=== PATIENT | female | born 1945 | race Caucasian/White ===

== ENCOUNTER 2017-01-14 11:26 | Inpatient (IN) ==
--- NOTE | 2017-01-14 11:32 | Pulmonology History & Physical ---
History of Present Illness Chief complaint: bilateral pneumonia, hypoxemia, hypotension, shortness of breath, cough History of present illness: ELY Ferrera acting as scribe for Dr. Ki Wesley. Ms. Pryor is a 71 year old /White female who was admitted today from our clinic for pneumonia, shortness of breath, productive cough, fever, hypoxemia, and hypotension. Her symptoms started yesterday with severe cough, body aches chills, fever, and shortness of breath. States she had to sleep up in her recliner and up on her couch last night due to inability to breathe. She had a low grade fever at home last night around 99-100 and admits fever around 100 this AM she took tylenol and her temp in the clinic was 98.4 oral temp. She is acute and chronically ill appearing. She is a current smoker and smokes 2 packs per day. Her blood pressure is normally around 130s-140s systolic and today it is 102/52. O2 sat on room air today in office 93% normally she is around 98% on room air. CXR done in the clinic reveals and acute RML infiltrate and an acute lingular infiltrate present. Due to the severity of her symptoms with bilateral infiltrates, low room air oxygen saturation, low blood pressure, fever, and her past medical history decision was made to admit to inpatient for further evaluation and treatment. She denies cardiac angina and palpitations, no syncope or near syncope, no symptoms of TIAs, denies reflux or solid dysphagia, denies any change in bowel habits. She denies any bleeding from any site. The remainder of the ROS is noncontributory. ALLERGIES: PENICILLINS, CODEINE, LIDODERM (per our clinic records) Home Medications: See list. Past Medical History: Migraine headaches, high blood pressure, type II diabetes mellitus, hyperlipidemia, history of depression, degenerative disease of the lumbar spine, spina bifida, history of colon polyps, last colonoscopy was in [address] Pina. Previous hospitalizations for pneumonia while she was under the care of Dr. Frye from pulmonary standpoint but we do not have these records at this time. She is followed by Dr. Han from an opthamology standpoint, Dr. Wallace from [facility] standpoint and Dr. Olivarez for her mammograms. Past Surgical History: Hip replacement surgery. Family History: Positive for high blood pressure and diabetes. 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 She smokes 2 packs of cigarettes per day and has smoked for 50 years. She is . She is the grandmother of Valentine Kenny RN who works at [employer] [employer] [facility] [place]. CXR done at [facility] 01/14/17 showed an acute RML and acute lingular infiltrate along with chronic changes. Labs done at [facility] 01/14/17 have been reviewed WBC 15,100 with 95% segs, RBC 5,540 H&H 16.6/50 with normal indices and a normal RDW 163,000 platelets. Glucose 189 BUN/Creatinine 18/1.00 Calcium 9.0 Sodium 136 Potassium 4.4 Magnesium 1.9. Home Medications Medication Instructions Recorded Confirmed Type Desvenlafaxine [Pristiq] 50 mg PO PC SUPPER 05/12/15 01/14/17 History Divalproex [Depakote] 250 mg PO BID 05/12/15 01/14/17 History Glimepiride 6 mg PO PC SUPPER 05/12/15 01/14/17 History Rosuvastatin [Crestor] 10 mg PO PC SUPPER 05/12/15 01/14/17 History cloNIDine HCl [Clonidine HCl] 0.2 mg PO PC SUPPER 05/12/15 01/14/17 History Allopurinol 100 mg PO PC SUPPER 10/26/15 01/14/17 History Carvedilol 6.25 mg PO BID 01/14/17 01/14/17 History Allergies Allergy/AdvReac Type Severity Reaction Status Date / Time Penicillins Allergy Severe Swelling Verified 11/08/15 09:53 of Lip/Tongue/Throat codeine AdvReac Intermediate NAUSEA/VOMI Verified 11/08/15 09:53 TING Medical,Surgical,& Family Hx - Medical History Cardio: History of: Hypertension Psychological: History of: Depression Neurology: History of: Migraine No history of: Seizures HEENT: History of: Eye Problem (GLASSES, BLIND IN LEFT EYE), Dental Problems ( UPPER AND LOWER PARTIALS) Endocrine: History of: Diabetes Mellitus (NIDDM), Dyslipidemia Rheumatology: History of;: Rheumatoid Arthritis Respiratory: History of: Bronchitis, Pneumonia, Respiratory Problems (scar tissue in lungs) Gastrointestinal: History of: GI Problems (DIARRHEA) Musculoskeletal: History of: Back/Neck Problems (SPUR IN BACK, SPINAL STENOSIS) - Surgical History HEENT Surgeries: Surgical HX of: Eye Surgery (RIGHT EYE CATARACT) Abdominal Surgeries: Surgical HX of: Abdominal Surgery, Appendectomy, Cholecystectomy, Colonoscopy Reproductive Surgeries: Surgical HX of;: Dilation and Curettage, Gynecologic Surgery, Hysterectomy Orthopedic Surgeries: Surgical HX of;: Total Hip Replacement (LEFT HIP REPLACEMENT) - Family History Family History: Reports;: Family Hypertension (MOTHER) - Social History Smoking Status: Never smoker Exam (Pulmonay) H&P - Constitutional Vitals: 59in 156.7lbs BP 104/79 HR 104 RR 22 Temp 97.4 O2 96% on 2L/min per nasal cannula Exam: Psych: Oriented x 3; acute and chronically ill appearing. HEENT: Pupils, irises, sclera, conjunctiva, and eyelids are normal. The face is symmetrical without rash or masses. Lips, tongue, buccal mucosa, soft and hard palates, and pharynx are WNL Neck: Symmetrical. Thyroid was not palpated. Lymphatics: No submandibular, cervical, or supraclavicular adenopathy Chest: Symmetrical with faint large airway and peripheral wheeze but wheezing is minimal due to restricted air movement. CV: Mildly tachycardic with a regular rhythm, grade I/ systolic ejection murmur at the LUSB that did not radiate. No gallop. Arterial: Carotids with a good upstroke. There is no bruit. Upper extremity pulses are palpable. Lower extremity pulses are palpable Venous: Exam of the neck, upper, and lower extremities is normal Abd: No appreciable organomegaly, masses, tenderness, or bruit; Bowel sounds are positive x 4; The aorta was not palpated /Rectal: Deferred Extremities: No clubbing, cyanosis, edema, or obvious DVT Skin: No cancerous or infectious lesions of the exposed, examined skin; the perineal area was not examined M/S: Loss of normal curvature of the cervical, thoracic, and lumbar spine. Neurological: Cranial nerves are intact, Long tract motor function is intact; Sensory exam was not done; gait was not tested. The remainder of the exam was noncontributory. Impression: #1 Acute right middle lobe and lingular pneumonia likely bacterial due to lab changes and fever #2 Shortness of breath and productive cough #3 Tobacco use #4 Fever with body aches and hypotension #5 Type II Diabetes Mellitus under poor control #6 See past history Plan: #1 Admit to inpatient for further evaluation and treatment #2 Blood cultures x3, sputum for gram stain culture and sensitivity, hemoglobin A1c, TSH/Free T4, EKG, UA with C&S, cold agglutinins, legionella titer, repeat CBC metabolic panel CXR in AM. #3 Cleocin 300mg IVPB and Levaquin 250mg IV daily #4 SoluMedrol 40mg q8h with accuchecks ACHS and PRN with mild sliding scale #5 Inhalation therapy with Duonebs QID and PRN with acapella #6 Continue home meds as ordered. #7 See orders
[2017-01-14] MEDS ORDERED: DEXTROSE 50% 25 GM/50 ML VIAL IV PRN (11:33)
[2017-01-14] MEDS ORDERED: GLUCAGON 1 MG VIAL IM PRN (11:33)
[2017-01-14] MEDS ORDERED: ACETAMINOPHEN 325 MG TABLET PO PRN (11:39)
[2017-01-14] MEDS ORDERED: ALBUTEROL/IPRATROPIUM 3 ML NEB RESP TX PRN (11:39)
[2017-01-14] MEDS ORDERED: traMADol 50 MG TABLET PO PRN (11:43)
--- NOTE | 2017-01-14 13:39 | EKG Report ---
Stationary ECG Study [facility] Test Date: 01/14/2017 1:39:18 PM Pat Name: LISA QUEEN Department: Room: 533 Gender: F Rn Concurrent Review: ROBER : 1945 Requested by: Shannon Wong Order Number: [id number] Reading MD: MEHDI CAZARES Intervals Metcalf Rate: 97 P: 152 PA: 317 QRS: 3 QRSD: 89 T: 4 QT: 357 QTc: 412 Interpretive Statements (DR. CAZARES TO INTERP) ELECTRONIC ATRIAL PACEMAKER and Electronically Signed On 01-17-17 08:08:53 CDT by MEHDI CAZARES [email or web address]
[2017-01-14] MEDS: CLINDAMYCIN INJ 300 MG in PREMIX 1 EACH IV SCH ×3 (13:45→20:15)
[2017-01-14] MEDS: SODIUM CHLORIDE 0.45% 1,000 ML IV SCH (13:45)
[2017-01-14] MEDS: PANTOPRAZOLE 40 MG TABLET PO SCH (13:45)
[2017-01-14] MEDS: methylPREDNISolone SOD SUC 40 MG/1 ML VIAL IV SCH ×2 (13:50→20:11)
[2017-01-14] MEDS: LEVOFLOXACIN INJ 250 MG in PREMIX 1 EACH IV SCH (15:32)
[2017-01-14] MEDS: ALBUTEROL/IPRATROPIUM 3 ML NEB RESP TX SCH ×2 (15:46→20:40)
[2017-01-14] MEDS: ALLOPURINOL 100 MG TABLET PO SCH (17:25)
[2017-01-14] MEDS: INSULIN LISPRO 100 UNIT/ML SUBCUT SCH ×2 (17:25→21:52)
[2017-01-14] MEDS: GLIMEPIRIDE 2 MG TABLET PO SCH (17:25)
[2017-01-14] MEDS: DESVENLAFAXINE 50 MG TABLET PO SCH (17:26)
[2017-01-14] MEDS: ROSUVASTATIN 10 MG TABLET PO SCH (17:26)
[2017-01-14] MEDS: CARVEDILOL 6.25 MG TABLET PO SCH (20:11)
[2017-01-14] MEDS: DIVALPROEX 250 MG TABLET PO SCH (20:11)
[2017-01-14 22:42] LABS: Apearance,Urine Slightly Hazy (Clear); Bilirubin,Urine Negative (Negative); Blood, Urine Negative (Negative); Glucose,Urine (UA) >=500 mg/dL (Negative); Hyaline Casts,Urine 6 /LPF (0-3); Ketones,Urine Negative (Negative); Mucus,Urine Occasional /LPF (Occasional); Nitrite,Urine Negative (Negative); Protein,Urine Negative; RBC,Urine 1 /HPF (0-4); Renal Epithelial Cells,Urine Occasional /HPF (<1); Squamous Epithelial Cell,Urine Occasional /HPF (0-10); Urine Color Yellow (Yellow); Urine Specific Gravity 1.015 (1.001-1.035); Urine Urobilinogen < 2.0 EU/DL (0.2-1.0); WBC,Urine 1 /HPF (0-6)
[2017-01-15] MEDS: SODIUM CHLORIDE 0.45% 1,000 ML IV SCH ×2 (03:11→21:16)
[2017-01-15] MEDS: methylPREDNISolone SOD SUC 40 MG/1 ML VIAL IV SCH ×3 (03:14→21:11)
[2017-01-15] MEDS: CLINDAMYCIN INJ 300 MG in PREMIX 1 EACH IV SCH ×4 (03:16→21:11)
[2017-01-15 06:59] LABS: Basophils % 0.1 % (0.0-0.8); Hemoglobin 14.9 GM/DL (12.0-16.0); Immature Granulocytes % 1.2 %; Immature Granulocytes Absolute 0.18 #; Lymphocytes # 0.6 10*3/uL (1.4-4.0); Lymphocytes % 3.8 % (21.3-54.2); Mean Corpuscular HGB Conc 33.1 GM/DL (32-36); Mean Corpuscular Hemoglobin 30 PG (27-34); Mean Corpuscular Volume 90.5 FL (87-102); Mean Platelet Volume 12.1 FL (9.6-12.0); Monocytes # 0.3 10*3/uL (0.11-0.8); Monocytes % 1.9 % (1.7-12.7); Neutrophils # 13.9 10*3/uL (1.4-7.4); Platelet Count 130 T/CUMM (130-400); Red Blood Count 4.97 MC/CUMM (3.8-5.5); Red Cell Distribution Width 13.7 % (9.3-17.3); White Blood Count 14.9 T/CUMM (4-12)
[2017-01-15 07:20] LABS: Band Neutrophils 4 % (0-10); Hypochromasia 1+; Lymphocytes 2 % (20-55); Platelet Estimate Normal; Segmented Neutrophils 91 % (50-85); Total Cells Counted 100
[2017-01-15 07:27] LABS: Calcium 8.3 MG/DL (8.5-10.1); Magnesium 2.3 MG/DL (1.8-2.4); Osmolality,Calculated 287.7 MOS/KG (273-304); Potassium 4.4 MMOL/L (3.5-5.1)
[2017-01-15] MEDS: ALBUTEROL/IPRATROPIUM 3 ML NEB RESP TX SCH ×4 (07:46→19:23)
[2017-01-15] MEDS: INSULIN LISPRO 100 UNIT/ML SUBCUT SCH ×4 (08:23→21:11)
[2017-01-15] MEDS: DIVALPROEX 250 MG TABLET PO SCH ×2 (08:24→21:11)
[2017-01-15] MEDS: PANTOPRAZOLE 40 MG TABLET PO SCH (08:24)
[2017-01-15] MEDS: CARVEDILOL 6.25 MG TABLET PO SCH ×2 (08:24→21:11)
--- NOTE | 2017-01-15 10:43 | XRay Report ---
Exam: XR chest 2V Date: 01/15/2017 Indication: Shortness of breath Comparison: 10/26/2015 Technical: PA lateral Findings: Cardiomegaly with ASVD. Epidural catheter leads are present in the midthoracic region. Lateral marginal osteophytes are present. Superimposes exam. Oxygen tubing is present. No obvious infiltrate or effusion. Mediastinum is intact. Impression: 1. Epidural catheter leads in place with degenerative spondylosis change thoracic lumbar spine 2. ASVD 3. Mild cardiac enlargement without decompensation PROCEDURE INTERPRETED AT [facility] DEPARTMENT OF RADIOLOGY Final Report Signed by: Dr. Ki Bender
--- NOTE | 2017-01-15 12:17 | Pulmonology Progress Note ---
Pulmonary - PN: Subj Interval history: Darwin Madsen, ANP-BC, GNP-BC, acting as scribe for Dr. Ki Wesley Mrs. Pryor is a 71-year-old white female who is [facility] for pneumonia, shortness of breath, productive cough, fever, hypoxemia, and hypotension. She is the grandmother of Valentine Kenny RN, who works at our clinic. Mrs. Pryor's chest remains hyperinflated, however, she is moving more air today. She reports that her breathing has improved since admission. She is presently being treated with Cleocin and Levaquin. She is also on Solu-Medrol and inhalation therapy. Sputum for Gram stain, culture, and sensitivity has been ordered. Thus far, she has been unable to produce a sputum for testing. Blood cultures are growing no organisms a day 1. Today's chest x-ray continues to show increased markings in the bases. Medications have been reviewed. We made no changes today. Labs have been reviewed. White count is 14,900 with 93.0% segs; H&H 14.9/45.0; platelet count 130,000; creatinine 0.90, BUN 27, electrolytes are normal Exam (Progress Note) - Constitutional Vitals: Period Temp Pulse Resp BP Sys/Suarez Pulse Ox Last 24 Hr 97.4 F-98.3 F 66-104 16-22 104-138/46-79 92-98 Exam: Chest... See above Heart no gallop Abdomen is nontender and nondistended; bowel sounds are positive 4 Extremities with nothing to suggest acute deep venous thrombophlebitis Psychiatric oriented 3 Neurologic long-term motor function is intact Plan: Continue present treatment. Repeat labs in the morning. Results - Labs CBC & BMP: 01/16/17 05:30 01/16/17 05:30
[2017-01-15] MEDS: LEVOFLOXACIN INJ 250 MG in PREMIX 1 EACH IV SCH (15:28)
[2017-01-15] MEDS: ROSUVASTATIN 10 MG TABLET PO SCH (17:06)
[2017-01-15] MEDS: GLIMEPIRIDE 2 MG TABLET PO SCH (17:06)
[2017-01-15] MEDS: DESVENLAFAXINE 50 MG TABLET PO SCH (17:07)
[2017-01-15] MEDS: ALLOPURINOL 100 MG TABLET PO SCH (17:07)
[2017-01-15] MEDS: BENZONATATE 100 MG CAPSULE PO PRN (21:11)
[2017-01-16] MEDS: methylPREDNISolone SOD SUC 40 MG/1 ML VIAL IV SCH ×3 (03:34→20:25)
[2017-01-16] MEDS: CLINDAMYCIN INJ 300 MG in PREMIX 1 EACH IV SCH ×4 (03:34→20:24)
[2017-01-16 06:04] LABS: Basophils % 0.1 % (0.0-0.8); Hematocrit 44.4 VOL% (35.7-47.0); Hemoglobin 14.4 GM/DL (12.0-16.0); Immature Granulocytes Absolute 0.21 #; Lymphocytes # 0.8 10*3/uL (1.4-4.0); Lymphocytes % 4.1 % (21.3-54.2); Mean Corpuscular HGB Conc 32.4 GM/DL (32-36); Mean Corpuscular Hemoglobin 30 PG (27-34); Monocytes # 0.7 10*3/uL (0.11-0.8); Monocytes % 3.6 % (1.7-12.7); Neutrophils # 18.4 10*3/uL (1.4-7.4); Neutrophils % 91.2 % (38.7-73.9); Platelet Count 127 T/CUMM (130-400); Red Blood Count 4.88 MC/CUMM (3.8-5.5); Red Cell Distribution Width 13.8 % (9.3-17.3); White Blood Count 20.2 T/CUMM (4-12)
[2017-01-16 06:25] LABS: Band Neutrophils 3 % (0-10); Hypochromasia 1+; Lymphocytes 3 % (20-55); Segmented Neutrophils 91 % (50-85); Total Cells Counted 100
[2017-01-16 06:26] LABS: Platelet Estimate Adequate
[2017-01-16 06:39] LABS: Calcium 8.4 MG/DL (8.5-10.1); Magnesium 2.8 MG/DL (1.8-2.4); Osmolality,Calculated 290.3 MOS/KG (273-304); Potassium 4.9 MMOL/L (3.5-5.1)
[2017-01-16] MEDS: ALBUTEROL/IPRATROPIUM 3 ML NEB RESP TX SCH ×4 (07:10→19:54)
[2017-01-16] MEDS: PANTOPRAZOLE 40 MG TABLET PO SCH (08:03)
[2017-01-16] MEDS: CARVEDILOL 6.25 MG TABLET PO SCH ×2 (08:03→20:25)
[2017-01-16] MEDS: BENZONATATE 100 MG CAPSULE PO PRN ×2 (08:03→20:25)
[2017-01-16] MEDS: DIVALPROEX 250 MG TABLET PO SCH ×2 (08:03→20:25)
[2017-01-16] MEDS: INSULIN LISPRO 100 UNIT/ML SUBCUT SCH ×4 (08:03→20:46)
[2017-01-16] MEDS: DORNASE ALFA 2.5 MG/2.5 ML VIAL RESP TX SCH ×2 (11:30→20:04)
[2017-01-16] MEDS: NICOTINE 21 MG/24 HR PATCH TRANSDERM SCH (11:36)
--- NOTE | 2017-01-16 12:32 | Pulmonology Progress Note ---
Pulmonary - PN: Subj Interval history: Darwin Madsen, ANP-BC, GNP-BC, acting as scribe for Dr. Ki Wesley Mrs. Pryor is a 71-year-old white female who is admitted 01/14/2017 from [facility] for pneumonia, shortness of breath, productive cough, fever, hypoxemia, and hypotension. She is the grandmother of Valentine Kenny RN, who works at our clinic. 01/15/2017. Mrs. Pryor's chest remains hyperinflated, however, she is moving more air today. She reports that her breathing has improved since admission. She is presently being treated with Cleocin and Levaquin. She is also on Solu- Medrol and inhalation therapy. Sputum for Gram stain, culture, and sensitivity has been ordered. Thus far, she has been unable to produce a sputum for testing. Blood cultures are growing no organisms a day 1. Today's chest x-ray continues to show increased markings in the bases. Medications have been reviewed. We made no changes today. Labs have been reviewed. White count is 14,900 with 93.0% segs; H&H 14.9/45.0; platelet count 130,000; creatinine 0.90, BUN 27, electrolytes are normal 01/16/2017. The patient continues to have loose large airway congestion and is having difficulty mobilizing her secretions. We will start Pulmozyme twice daily. She is receiving chest physiotherapy but we will ask her Acapella to be done with all breathing treatments. We will repeat her chest x-ray in the morning. This patient has a significant tobacco abuse history. She is somewhat anxious regarding this. We will start the NicoDerm 21 g patch. Tobacco cessation was discussed at length with the patient today. Janice Jones RN, was present. Medications have been reviewed. Labs have been reviewed. White count is 20,200 with 91.2% segs; H&H 14.4/44.4; platelet count 127,000; creatinine 0.80, BUN 25, electrolytes are normal; magnesium 2.8 Exam (Progress Note) - Constitutional Vitals: Period Temp Pulse Resp BP Sys/Suarez Pulse Ox Last 24 Hr 97.7 F-98.3 F 65-83 13-24 135-165/61-90 91-98 Exam: Chest... See above Heart no gallop Abdomen is nontender and nondistended; bowel sounds are positive 4 Extremities with nothing to suggest acute deep venous thrombophlebitis Psychiatric oriented 3 Neurologic long-term motor function is intact Plan: NicoDerm 21 g patch. Pulmozyme twice daily. Acapella without breathing treatments. Repeat chest x-ray in the morning. Continue other present treatment. Results - Labs CBC & BMP: 01/16/17 05:30 01/16/17 05:30
[2017-01-16] MEDS: SODIUM CHLORIDE 0.45% 1,000 ML IV SCH (14:15)
[2017-01-16] MEDS: LEVOFLOXACIN INJ 250 MG in PREMIX 1 EACH IV SCH (15:58)
[2017-01-16] MEDS: ROSUVASTATIN 10 MG TABLET PO SCH (17:03)
[2017-01-16] MEDS: ALLOPURINOL 100 MG TABLET PO SCH (17:03)
[2017-01-16] MEDS: DESVENLAFAXINE 50 MG TABLET PO SCH (17:03)
[2017-01-16] MEDS: GLIMEPIRIDE 2 MG TABLET PO SCH (17:04)
[2017-01-17] MEDS: CLINDAMYCIN INJ 300 MG in PREMIX 1 EACH IV SCH ×4 (04:14→20:26)
[2017-01-17] MEDS: methylPREDNISolone SOD SUC 40 MG/1 ML VIAL IV SCH ×3 (04:17→20:20)
[2017-01-17 06:49] LABS: Basophils % 0.1 % (0.0-0.8); Hematocrit 46.6 VOL% (35.7-47.0); Hemoglobin 15.6 GM/DL (12.0-16.0); Immature Granulocytes % 0.9 %; Immature Granulocytes Absolute 0.15 #; Lymphocytes # 0.5 10*3/uL (1.4-4.0); Mean Corpuscular HGB Conc 33.5 GM/DL (32-36); Mean Corpuscular Hemoglobin 30 PG (27-34); Mean Corpuscular Volume 89.6 FL (87-102); Mean Platelet Volume 12.1 FL (9.6-12.0); Monocytes # 0.7 10*3/uL (0.11-0.8); Monocytes % 4.6 % (1.7-12.7); Neutrophils # 14.6 10*3/uL (1.4-7.4); Neutrophils % 91.4 % (38.7-73.9); Platelet Count 129 T/CUMM (130-400); Red Cell Distribution Width 13.9 % (9.3-17.3); White Blood Count 15.9 T/CUMM (4-12)
[2017-01-17] MEDS: SODIUM CHLORIDE 0.45% 1,000 ML IV SCH (06:57)
[2017-01-17 07:11] LABS: Band Neutrophils 2 % (0-10); Lymphocytes 6 % (20-55); Segmented Neutrophils 89 % (50-85); Total Cells Counted 100
[2017-01-17 07:12] LABS: Hypochromasia 1+; Ovalocytes Slight; Platelet Estimate Normal
--- NOTE | 2017-01-17 07:13 | XRay Report ---
XR chest 2V Indication: Pneumonia Comparison: 15 January 2017 Findings: The heart and mediastinum are normal in size and configuration. The pulmonary vascularity is normal in caliber. There slight increased lung volumes and increased peribronchial density. No other abnormality is seen. Impression: Findings suggests bronchitis vs reactive airways disease. PROCEDURE INTERPRETED AT [facility] DEPARTMENT OF RADIOLOGY Final Report Signed by: Dr. Johnson Solano
[2017-01-17 07:20] LABS: Calcium 9.2 MG/DL (8.5-10.1); Magnesium 2.6 MG/DL (1.8-2.4); Osmolality,Calculated 286.4 MOS/KG (273-304); Potassium 4.1 MMOL/L (3.5-5.1)
[2017-01-17] MEDS: ALBUTEROL/IPRATROPIUM 3 ML NEB RESP TX SCH ×4 (07:48→19:35)
[2017-01-17] MEDS: DORNASE ALFA 2.5 MG/2.5 ML VIAL RESP TX SCH ×2 (07:51→19:35)
[2017-01-17] MEDS: INSULIN LISPRO 100 UNIT/ML SUBCUT SCH ×4 (08:44→20:24)
[2017-01-17] MEDS: PANTOPRAZOLE 40 MG TABLET PO SCH (08:44)
[2017-01-17] MEDS: DIVALPROEX 250 MG TABLET PO SCH ×2 (08:44→20:23)
[2017-01-17] MEDS: CARVEDILOL 6.25 MG TABLET PO SCH ×2 (08:44→20:23)
[2017-01-17] MEDS: NICOTINE 21 MG/24 HR PATCH TRANSDERM SCH (08:46)
--- NOTE | 2017-01-17 11:43 | Pulmonology Progress Note ---
Pulmonary - PN: Subj Interval history: Darwin Madsen, ANP-BC, GNP-BC, acting as scribe for Dr. Ki Wesley Mrs. Pryor is a 71-year-old white female who is admitted 01/14/2017 from [facility] for pneumonia, shortness of breath, productive cough, fever, hypoxemia, and hypotension. She is the grandmother of Valentine Kenny RN, who works at our clinic. 01/15/2017. Mrs. Pryor's chest remains hyperinflated, however, she is moving more air today. She reports that her breathing has improved since admission. She is presently being treated with Cleocin and Levaquin. She is also on Solu- Medrol and inhalation therapy. Sputum for Gram stain, culture, and sensitivity has been ordered. Thus far, she has been unable to produce a sputum for testing. Blood cultures are growing no organisms a day 1. Today's chest x-ray continues to show increased markings in the bases. Medications have been reviewed. We made no changes today. Labs have been reviewed. White count is 14,900 with 93.0% segs; H&H 14.9/45.0; platelet count 130,000; creatinine 0.90, BUN 27, electrolytes are normal 01/16/2017. The patient continues to have loose large airway congestion and is having difficulty mobilizing her secretions. We will start Pulmozyme twice daily. She is receiving chest physiotherapy but we will ask her Acapella to be done with all breathing treatments. We will repeat her chest x-ray in the morning. This patient has a significant tobacco abuse history. She is somewhat anxious regarding this. We will start the NicoDerm 21 g patch. Tobacco cessation was discussed at length with the patient today. aJnice Jones RN, was present. 01/17/2017. The patient was seen today along with her and Jolene Felder RN. She continues to have difficulty expectorating. Yesterday we added Pulmozyme and Acapella. This is helping. On chest exam her secretions are loosening up. She was started on a NicoDerm patch yesterday as well. She is tolerating this fine. Cold agglutinins are negative. Legionella titers negative. Medications have been reviewed. We made no changes today. Labs have been reviewed. White count is 15,900 with 91.4% 6; H&H 15.6/46.6; platelet count 129,000; creatinine 0.70, BUN 19, electrolytes normal; magnesium 2.6 Exam (Progress Note) - Constitutional Vitals: Period Temp Pulse Resp BP Sys/Suarez Pulse Ox Last 24 Hr 97.8 F-98.2 F 66-90 14-20 150-185/68-90 94-100 Exam: Chest... See above Heart no gallop Abdomen is nontender and nondistended; bowel sounds are positive 4 Extremities with nothing to suggest acute deep venous thrombophlebitis Psychiatric oriented 3 Neurologic long-term motor function is intact Plan: Continue present treatment. Repeat chest x-ray on Friday. We suspect that she will require hospitalization until Friday of next week. Results - Labs CBC & BMP: 01/17/17 06:31 01/17/17 06:31
[2017-01-17] MEDS: LEVOFLOXACIN INJ 250 MG in PREMIX 1 EACH IV SCH (15:33)
[2017-01-17] MEDS: ALLOPURINOL 100 MG TABLET PO SCH (17:22)
[2017-01-17] MEDS: ROSUVASTATIN 10 MG TABLET PO SCH (17:22)
[2017-01-17] MEDS: GLIMEPIRIDE 2 MG TABLET PO SCH (17:23)
[2017-01-17] MEDS: DESVENLAFAXINE 50 MG TABLET PO SCH (17:23)
[2017-01-18] MEDS: SODIUM CHLORIDE 0.45% 1,000 ML IV SCH ×2 (00:11→09:22)
[2017-01-18] MEDS: methylPREDNISolone SOD SUC 40 MG/1 ML VIAL IV SCH (03:08)
[2017-01-18] MEDS: CLINDAMYCIN INJ 300 MG in PREMIX 1 EACH IV SCH ×4 (03:12→20:29)
[2017-01-18] MEDS: CARVEDILOL 6.25 MG TABLET PO SCH ×3 (04:33→21:01)
[2017-01-18] MEDS: DORNASE ALFA 2.5 MG/2.5 ML VIAL RESP TX SCH ×2 (08:02→19:29)
[2017-01-18] MEDS: ALBUTEROL/IPRATROPIUM 3 ML NEB RESP TX SCH ×4 (08:02→19:13)
[2017-01-18] MEDS ORDERED: hydrALAZINE 20 MG/1 ML VIAL IV ONE (08:17)
[2017-01-18] MEDS: DIVALPROEX 250 MG TABLET PO SCH ×2 (08:38→20:28)
[2017-01-18] MEDS: PANTOPRAZOLE 40 MG TABLET PO SCH (08:39)
[2017-01-18] MEDS: NICOTINE 21 MG/24 HR PATCH TRANSDERM SCH (08:39)
[2017-01-18] MEDS: INSULIN LISPRO 100 UNIT/ML SUBCUT SCH ×4 (09:12→20:28)
[2017-01-18] MEDS ORDERED: hydrALAZINE 20 MG/1 ML VIAL IV PRN (11:24)
--- NOTE | 2017-01-18 11:29 | Pulmonology Progress Note ---
Pulmonary - PN: Subj Interval history: Called twice by nursing today because patients SBP was 200. After chart review, it appears patients BP has been elevated for the duration of stay. She is only on Coreg at home, and says her BP runs high at home as well. She is still having chest congestion and cough. Exam (Progress Note) - Constitutional Vitals: Period Temp Pulse Resp BP Sys/Suarez Pulse Ox Last 24 Hr 97.8 F-98.4 F 64-89 16-20 151-209/73-95 92-98 General appearance: no acute distress - Head Head exam: Present: normal inspection - Respiratory Respiratory exam: Present: rales. Absent: accessory muscle use, decreased breath sounds, rhonchi, wheezes - Cardiovascular Cardiovascular exam: Present: regular rate and rhythm Results - Labs CBC & BMP: 01/17/17 06:31 01/17/17 06:31 Lab Results: I have reviewed the past 24 hour labs Assessment and Plan (1) Hypertension Status: Acute Assessment and plan: Patient only on beta rolando which is not first line therapy. Will add Chlorthalidone and a prn order for hydralazine as well Current Visit: Yes (2) Pneumonia Status: Acute Assessment and plan: Continue current treatments. Will cut back on steroids as this may be contributing her BP issues Current Visit: No
[2017-01-18] MEDS: CHLORTHALIDONE 25 MG TABLET PO SCH (12:45)
[2017-01-18] MEDS: LEVOFLOXACIN INJ 250 MG in PREMIX 1 EACH IV SCH (15:46)
[2017-01-18] MEDS: ROSUVASTATIN 10 MG TABLET PO SCH (18:06)
[2017-01-18] MEDS: DESVENLAFAXINE 50 MG TABLET PO SCH (18:06)
[2017-01-18] MEDS: ALLOPURINOL 100 MG TABLET PO SCH (18:06)
[2017-01-18] MEDS: GLIMEPIRIDE 2 MG TABLET PO SCH (18:07)
[2017-01-19] MEDS: BENZONATATE 100 MG CAPSULE PO PRN ×2 (02:37→20:42)
[2017-01-19] MEDS: CLINDAMYCIN INJ 300 MG in PREMIX 1 EACH IV SCH ×4 (02:37→20:45)
[2017-01-19] MEDS: ALBUTEROL/IPRATROPIUM 3 ML NEB RESP TX SCH ×4 (07:09→19:23)
[2017-01-19] MEDS: DORNASE ALFA 2.5 MG/2.5 ML VIAL RESP TX SCH ×2 (07:10→19:23)
[2017-01-19 07:37] LABS: Basophils % 0.4 % (0.0-0.8); Hematocrit 51.1 VOL% (35.7-47.0); Hemoglobin 17.2 GM/DL (12.0-16.0); Immature Granulocytes % 1.6 %; Immature Granulocytes Absolute 0.12 #; Lymphocytes # 1.3 10*3/uL (1.4-4.0); Lymphocytes % 16.9 % (21.3-54.2); Mean Corpuscular HGB Conc 33.7 GM/DL (32-36); Mean Corpuscular Hemoglobin 29 PG (27-34); Mean Corpuscular Volume 86.9 FL (87-102); Mean Platelet Volume 12.5 FL (9.6-12.0); Monocytes % 13.4 % (1.7-12.7); Neutrophils # 5.2 10*3/uL (1.4-7.4); Neutrophils % 67.7 % (38.7-73.9); Platelet Count 109 T/CUMM (130-400); Red Blood Count 5.88 MC/CUMM (3.8-5.5); Red Cell Distribution Width 13.7 % (9.3-17.3); White Blood Count 7.7 T/CUMM (4-12)
[2017-01-19 08:10] LABS: Calcium 8.6 MG/DL (8.5-10.1); Magnesium 2.4 MG/DL (1.8-2.4); Osmolality,Calculated 272.7 MOS/KG (273-304); Potassium 3.8 MMOL/L (3.5-5.1)
[2017-01-19] MEDS: INSULIN LISPRO 100 UNIT/ML SUBCUT SCH ×4 (08:43→20:43)
[2017-01-19] MEDS: NICOTINE 21 MG/24 HR PATCH TRANSDERM SCH (08:44)
[2017-01-19] MEDS: DIVALPROEX 250 MG TABLET PO SCH ×2 (08:44→20:42)
[2017-01-19] MEDS: predniSONE 10 MG TABLET PO SCH (08:44)
[2017-01-19] MEDS: PANTOPRAZOLE 40 MG TABLET PO SCH (08:45)
[2017-01-19] MEDS: CHLORTHALIDONE 25 MG TABLET PO SCH (08:45)
[2017-01-19] MEDS: CARVEDILOL 6.25 MG TABLET PO SCH ×2 (08:45→20:43)
--- NOTE | 2017-01-19 12:47 | Pulmonology Progress Note ---
Pulmonary - PN: Subj Interval history: Patient still having a lot of coughing overnight. Reports that breathing treatments and chest percussive therapy help. BPs have been lower. Otherwise nothing new Exam (Progress Note) - Constitutional Vitals: Period Temp Pulse Resp BP Sys/Suarez Pulse Ox Last 24 Hr 96.4 F-98.9 F 75-100 18-20 135-159/66-77 90-100 General appearance: mild distress, disheveled - Respiratory Respiratory exam: Present: clear to auscultation bilaterally - Cardiovascular Cardiovascular exam: Present: regular rate and rhythm Results - Labs CBC & BMP: 01/19/17 07:09 01/19/17 07:09 Lab Results: I have reviewed the past 24 hour labs Assessment and Plan (1) Hypertension Status: Acute Assessment and plan: Patient doing well on Chlorthalidone, BPs much better Current Visit: Yes (2) Pneumonia Status: Acute Assessment and plan: Continue current treatments. Will cut back on steroids as this may be contributing her BP issues Current Visit: No
[2017-01-19] MEDS: LEVOFLOXACIN INJ 250 MG in PREMIX 1 EACH IV SCH (14:52)
[2017-01-19] MEDS: DESVENLAFAXINE 50 MG TABLET PO SCH (17:16)
[2017-01-19] MEDS: ROSUVASTATIN 10 MG TABLET PO SCH (17:16)
[2017-01-19] MEDS: ALLOPURINOL 100 MG TABLET PO SCH (17:17)
[2017-01-19] MEDS: GLIMEPIRIDE 2 MG TABLET PO SCH (17:17)
[2017-01-20] MEDS: CLINDAMYCIN INJ 300 MG in PREMIX 1 EACH IV SCH ×4 (03:20→20:47)
--- NOTE | 2017-01-20 07:30 | XRay Report ---
XR chest 2V Indication: Pneumonia Comparison: 17 January 2017 Findings: The heart and mediastinum are normal in size and configuration. The pulmonary vascularity is normal in caliber. No lung infiltrates, effusions, pneumothorax or other abnormality is demonstrated. Impression: No acute cardiopulmonary findings. PROCEDURE INTERPRETED AT [facility] DEPARTMENT OF RADIOLOGY Final Report Signed by: Dr. Johnson Solano
[2017-01-20] MEDS: ALBUTEROL/IPRATROPIUM 3 ML NEB RESP TX SCH ×5 (07:50→20:13)
[2017-01-20] MEDS: DORNASE ALFA 2.5 MG/2.5 ML VIAL RESP TX SCH ×3 (07:50→20:18)
[2017-01-20] MEDS: NICOTINE 21 MG/24 HR PATCH TRANSDERM SCH (08:11)
[2017-01-20] MEDS: DIVALPROEX 250 MG TABLET PO SCH ×2 (08:12→20:48)
[2017-01-20] MEDS: PANTOPRAZOLE 40 MG TABLET PO SCH (08:12)
[2017-01-20] MEDS: INSULIN LISPRO 100 UNIT/ML SUBCUT SCH ×4 (08:12→20:48)
[2017-01-20] MEDS: CHLORTHALIDONE 25 MG TABLET PO SCH (08:12)
[2017-01-20] MEDS: CARVEDILOL 6.25 MG TABLET PO SCH ×2 (08:12→20:48)
[2017-01-20] MEDS: predniSONE 10 MG TABLET PO SCH (08:12)
--- NOTE | 2017-01-20 12:12 | Pulmonology Progress Note ---
Pulmonary - PN: Subj Interval history: Darwin Madsen, ANP-BC, GNP-BC, acting as scribe for Dr. Ki Wesley Mrs. Pryor is a 71-year-old white female who is admitted [facility]/14/2017 from [facility] for pneumonia, shortness of breath, productive cough, fever, hypoxemia, and hypotension. She is the grandmother of Valentine Kenny RN, who works at our clinic. 01/15/2017. Mrs. Pryor's chest remains hyperinflated, however, she is moving more air today. She reports that her breathing has improved since admission. She is presently being treated with Cleocin and Levaquin. She is also on Solu- Medrol and inhalation therapy. Sputum for Gram stain, culture, and sensitivity has been ordered. Thus far, she has been unable to produce a sputum for testing. Blood cultures are growing no organisms a day 1. Today's chest x-ray continues to show increased markings in the bases. Medications have been reviewed. We made no changes today. Labs have been reviewed. White count is 14,900 with 93.0% segs; H&H 14.9/45.0; platelet count 130,000; creatinine 0.90, BUN 27, electrolytes are normal 01/16/2017. The patient continues to have loose large airway congestion and is having difficulty mobilizing her secretions. We will start Pulmozyme twice daily. She is receiving chest physiotherapy but we will ask her Acapella to be done with all breathing treatments. We will repeat her chest x-ray in the morning. This patient has a significant tobacco abuse history. She is somewhat anxious regarding this. We will start the NicoDerm 21 g patch. Tobacco cessation was discussed at length with the patient today. Janice Jones RN, was present. 01/17/2017. The patient was seen today along with her and Jolene Felder RN. She continues to have difficulty expectorating. Yesterday we added Pulmozyme and Acapella. This is helping. On chest exam her secretions are loosening up. She was started on a NicoDerm patch yesterday as well. She is tolerating this fine. Cold agglutinins are negative. Legionella titers negative. 01/20/2017. The patient was seen today along with Gigi Connor RN. Over the weekend, the patient had some problems with her glucoses and blood pressure. She was started on chlorthalidone with as needed Apresoline. Her blood pressures are lower. Her Solu-Medrol was also discontinued over the weekend. However, on today's exam the patient has a small amount of end expiratory wheeze. We will further adjust her sliding scale insulin and restart Solu- Medrol 20 mg IV every 12 hours. Patient is on her home dose of Amaryl. Medications have been reviewed. Labs have been reviewed. No new labs were drawn today. Exam (Progress Note) - Constitutional Vitals: Period Temp Pulse Resp BP Sys/Suarez Pulse Ox Last 24 Hr 97.2 F-99.0 F 78-98 17-18 92-145/46-71 90-98 Exam: Chest... See above Heart no gallop Abdomen is nontender and nondistended; bowel sounds are positive 4 Extremities with nothing to suggest acute deep venous thrombophlebitis Psychiatric oriented 3 Neurologic long-term motor function is intact Plan: Increase sliding scale insulin. Restart Solu-Medrol 12 mg IV every 12 hours. Continue present treatment. Her chest x-ray today says that her previously noted infiltrates have nearly resolved. We suspect it will take another 1-2 days to get her ready for discharge home. Results - Labs CBC & BMP: 01/19/17 07:09 01/19/17 07:09
[2017-01-20] MEDS: methylPREDNISolone SOD SUC 40 MG/1 ML VIAL IV SCH ×2 (12:51→23:33)
[2017-01-20] MEDS: LEVOFLOXACIN INJ 250 MG in PREMIX 1 EACH IV SCH (16:02)
[2017-01-20] MEDS: ALLOPURINOL 100 MG TABLET PO SCH (17:14)
[2017-01-20] MEDS: ROSUVASTATIN 10 MG TABLET PO SCH (17:14)
[2017-01-20] MEDS: GLIMEPIRIDE 2 MG TABLET PO SCH (17:14)
[2017-01-20] MEDS: DESVENLAFAXINE 50 MG TABLET PO SCH (17:14)
[2017-01-21] MEDS: CLINDAMYCIN INJ 300 MG in PREMIX 1 EACH IV SCH ×4 (03:08→21:07)
[2017-01-21] MEDS: ALBUTEROL/IPRATROPIUM 3 ML NEB RESP TX SCH ×4 (07:43→19:27)
[2017-01-21] MEDS: DORNASE ALFA 2.5 MG/2.5 ML VIAL RESP TX SCH ×2 (07:50→19:28)
[2017-01-21] MEDS: PANTOPRAZOLE 40 MG TABLET PO SCH (08:07)
[2017-01-21] MEDS: DIVALPROEX 250 MG TABLET PO SCH ×2 (08:07→21:05)
[2017-01-21] MEDS: CARVEDILOL 6.25 MG TABLET PO SCH ×2 (08:07→21:05)
[2017-01-21] MEDS: NICOTINE 21 MG/24 HR PATCH TRANSDERM SCH (08:08)
[2017-01-21] MEDS: INSULIN LISPRO 100 UNIT/ML SUBCUT SCH ×4 (08:08→21:05)
[2017-01-21] MEDS: CHLORTHALIDONE 25 MG TABLET PO SCH (08:08)
--- NOTE | 2017-01-21 11:38 | Pulmonology Progress Note ---
Pulmonary - PN: Subj Interval history: Darwin Madsen, ANP-BC, GNP-BC, acting as scribe for Dr. Ki Wesley Mrs. Pryor is a 71-year-old white female who is [facility] for pneumonia, shortness of breath, productive cough, fever, hypoxemia, and hypotension. She is the grandmother of Valentine Kenny RN, who works at our clinic. 01/15/2017. Mrs. Pryor's chest remains hyperinflated, however, she is moving more air today. She reports that her breathing has improved since admission. She is presently being treated with Cleocin and Levaquin. She is also on Solu- Medrol and inhalation therapy. Sputum for Gram stain, culture, and sensitivity has been ordered. Thus far, she has been unable to produce a sputum for testing. Blood cultures are growing no organisms a day 1. Today's chest x-ray continues to show increased markings in the bases. Medications have been reviewed. We made no changes today. Labs have been reviewed. White count is 14,900 with 93.0% segs; H&H 14.9/45.0; platelet count 130,000; creatinine 0.90, BUN 27, electrolytes are normal 01/16/2017. The patient continues to have loose large airway congestion and is having difficulty mobilizing her secretions. We will start Pulmozyme twice daily. She is receiving chest physiotherapy but we will ask her Acapella to be done with all breathing treatments. We will repeat her chest x-ray in the morning. This patient has a significant tobacco abuse history. She is somewhat anxious regarding this. We will start the NicoDerm 21 g patch. Tobacco cessation was discussed at length with the patient today. Janice Jones RN, was present. 01/17/2017. The patient was seen today along with her and Jolene Felder RN. She continues to have difficulty expectorating. Yesterday we added Pulmozyme and Acapella. This is helping. On chest exam her secretions are loosening up. She was started on a NicoDerm patch yesterday as well. She is tolerating this fine. Cold agglutinins are negative. Legionella titers negative. 01/20/2017. The patient was seen today along with Gigi Connor RN. Over the weekend, the patient had some problems with her glucoses and blood pressure. She was started on chlorthalidone with as needed Apresoline. Her blood pressures are lower. Her Solu-Medrol was also discontinued over the weekend. However, on today's exam the patient has a small amount of end expiratory wheeze. We will further adjust her sliding scale insulin and restart Solu- Medrol 20 mg IV every 12 hours. Patient is on her home dose of Amaryl. 01/21/2017. Despite increasing the patient's sliding-scale insulin, her glucoses have remained elevated and this is certainly aggravated by the her necessary steroids. She is only been on Amaryl at home so we will add Januvia 100 mg daily. From a pulmonary standpoint, the patient has continued large airway congestion and has difficulty mobilizing her secretions. She is on inhalation therapy with Acapella, Pulmozyme, Solu-Medrol, and Mucinex. We will continue this for now. We will repeat a chest x-ray tomorrow. Medications have been reviewed. Labs have been reviewed. No new labs were drawn today. Exam (Progress Note) - Constitutional Vitals: Period Temp Pulse Resp BP Sys/Suarez Pulse Ox Last 24 Hr 97.2 F-98.7 F 61-93 18-20 92-151/46-83 81-100 Exam: Chest... See above Heart no gallop Abdomen is nontender and nondistended; bowel sounds are positive 4 Extremities with nothing to suggest acute deep venous thrombophlebitis Psychiatric oriented 3 Neurologic long-term motor function is intact Plan: Start Januvia 100 mg daily. Repeat chest x-ray in the morning. Continue other present treatments and medications. See orders. Results - Labs CBC & BMP: 01/19/17 07:09 01/19/17 07:09
[2017-01-21] MEDS: methylPREDNISolone SOD SUC 40 MG/1 ML VIAL IV SCH ×2 (13:05→23:46)
[2017-01-21] MEDS: sitaGLIPtin 100 MG TABLET PO SCH (13:06)
[2017-01-21] MEDS: LEVOFLOXACIN INJ 250 MG in PREMIX 1 EACH IV SCH (16:26)
[2017-01-21] MEDS: GLIMEPIRIDE 2 MG TABLET PO SCH (17:07)
[2017-01-21] MEDS: DESVENLAFAXINE 50 MG TABLET PO SCH (17:07)
[2017-01-21] MEDS: ROSUVASTATIN 10 MG TABLET PO SCH (17:07)
[2017-01-21] MEDS: ALLOPURINOL 100 MG TABLET PO SCH (17:08)
[2017-01-22] MEDS: CLINDAMYCIN INJ 300 MG in PREMIX 1 EACH IV SCH ×4 (03:05→20:40)
[2017-01-22 06:55] LABS: Basophils % 0.2 % (0.0-0.8); Hematocrit 52.1 VOL% (35.7-47.0); Hemoglobin 17.3 GM/DL (12.0-16.0); Immature Granulocytes % 1.3 %; Immature Granulocytes Absolute 0.13 #; Lymphocytes # 1.4 10*3/uL (1.4-4.0); Lymphocytes % 13.7 % (21.3-54.2); Mean Corpuscular HGB Conc 33.2 GM/DL (32-36); Mean Corpuscular Hemoglobin 30 PG (27-34); Mean Corpuscular Volume 89.2 FL (87-102); Mean Platelet Volume 12.1 FL (9.6-12.0); Monocytes # 0.4 10*3/uL (0.11-0.8); Neutrophils # 8.1 10*3/uL (1.4-7.4); Neutrophils % 80.8 % (38.7-73.9); Platelet Count 178 T/CUMM (130-400); Red Blood Count 5.84 MC/CUMM (3.8-5.5); Red Cell Distribution Width 13.6 % (9.3-17.3); White Blood Count 10.1 T/CUMM (4-12)
[2017-01-22 07:23] LABS: Albumin 3.3 G/DL (3.4-5.0); Bilirubin,Total 0.4 MG/DL (0.2-1.0); Calcium 8.8 MG/DL (8.5-10.1); Osmolality,Calculated 281.2 MOS/KG (273-304); Potassium 4.5 MMOL/L (3.5-5.1); Total Protein 7.6 G/DL (6.4-8.3)
[2017-01-22] MEDS: ALBUTEROL/IPRATROPIUM 3 ML NEB RESP TX SCH ×4 (07:27→19:44)
[2017-01-22] MEDS: DORNASE ALFA 2.5 MG/2.5 ML VIAL RESP TX SCH ×2 (07:37→19:49)
--- NOTE | 2017-01-22 07:39 | XRay Report ---
XR chest 2V Indication: Pneumonia Comparison: 20 January 2017 Findings: The heart and mediastinum are normal in size and configuration. The pulmonary vascularity is normal in caliber. Trace left lower lung density is present, slightly more prominent when compared to previous. No other lung infiltrates, effusions, pneumothorax or other abnormality is demonstrated. Impression: Slight increased left lower lung density. No other significant changes. PROCEDURE INTERPRETED AT [facility] DEPARTMENT OF RADIOLOGY Final Report Signed by: Dr. Johnson Solano
[2017-01-22] MEDS: sitaGLIPtin 100 MG TABLET PO SCH (08:39)
[2017-01-22] MEDS: CARVEDILOL 6.25 MG TABLET PO SCH ×2 (08:39→20:35)
[2017-01-22] MEDS: DIVALPROEX 250 MG TABLET PO SCH ×2 (08:40→20:35)
[2017-01-22] MEDS: PANTOPRAZOLE 40 MG TABLET PO SCH (08:40)
[2017-01-22] MEDS: CHLORTHALIDONE 25 MG TABLET PO SCH (08:40)
[2017-01-22] MEDS: INSULIN LISPRO 100 UNIT/ML SUBCUT SCH ×4 (08:40→20:40)
[2017-01-22] MEDS: NICOTINE 21 MG/24 HR PATCH TRANSDERM SCH (08:40)
--- NOTE | 2017-01-22 10:54 | Pulmonology Progress Note ---
Pulmonary - PN: Subj Interval history: ELY Ferrera acting as scribe for Dr. Ki Wesley. Mrs. Pryor is a 71-year-old white female who is admitted [facility]/14/2017 from [facility] for pneumonia, shortness of breath, productive cough, fever, hypoxemia, and hypotension. She is the grandmother of Valentine Kenny RN, who works at our clinic. 01/15/2017. Mrs. Pryor's chest remains hyperinflated, however, she is moving more air today. She reports that her breathing has improved since admission. She is presently being treated with Cleocin and Levaquin. She is also on Solu- Medrol and inhalation therapy. 01/16/2017. The patient continues to have loose large airway congestion and is having difficulty mobilizing her secretions. We will start Pulmozyme twice daily. She is receiving chest physiotherapy but we will ask her Acapella to be done with all breathing treatments. We will repeat her chest x-ray in the morning. This patient has a significant tobacco abuse history. She is somewhat anxious regarding this. We will start the NicoDerm 21 g patch. Tobacco cessation was discussed at length with the patient today. Janice Jones RN, was present. 01/17/2017. The patient was seen today along with her and Jolene Felder RN. She continues to have difficulty expectorating. Yesterday we added Pulmozyme and Acapella. This is helping. On chest exam her secretions are loosening up. She was started on a NicoDerm patch yesterday as well. She is tolerating this fine. Cold agglutinins are negative. Legionella titers negative. 01/20/2017. The patient was seen today along with Gigi Connor RN. Over the weekend, the patient had some problems with her glucoses and blood pressure. She was started on chlorthalidone with as needed Apresoline. Her blood pressures are lower. Her Solu-Medrol was also discontinued over the weekend. However, on today's exam the patient has a small amount of end expiratory wheeze. We will further adjust her sliding scale insulin and restart Solu- Medrol 20 mg IV every 12 hours. Patient is on her home dose of Amaryl. 01/21/2017. Despite increasing the patient's sliding-scale insulin, her glucoses have remained elevated and this is certainly aggravated by the her necessary steroids. She is only been on Amaryl at home so we will add Januvia 100 mg daily. From a pulmonary standpoint, the patient has continued large airway congestion and has difficulty mobilizing her secretions. She is on inhalation therapy with Acapella, Pulmozyme, Solu-Medrol, and Mucinex. We will continue this for now. We will repeat a chest x-ray tomorrow. 01/22/17 Patient was seen today along with MODESTA Lombardo. She was started on Januvia yesterday due to uncontrolled glucoses. Since starting this medication yesterday her glucoses have ranged from 183-290 which is mildly improved, of note she is still on a small dose of SoluMedrol for her exacerbation of COPD and resolving pneumonia. She does have some continued large airway congestion but she is mobilizing secretions somewhat better and per her CXR the right sided infiltrate has basically resolved while the lingular infiltrate has resolved about 80%. She continues to be on inhalation therapy with Acapella, Pulmozyme, along with steroids as above and mucinex. She is also using Nicotine patches and would like a prescription for these on discharge. We have discussed with her that we will keep her one more day to monitor her and as long as no acute changes she will likely go home tomorrow. Encouraged her to be up and ambulating as much as tolerated. She verbalized understanding of this. Medications have been reviewed. Labs have been reviewed. Blood cultures negative at 5 days. Sputum for gram stain C&S showed few gram positive cocci in pairs, chains and clusters, rare gram negative rods, few gram positive rods, >25 01/22/17 WBC 10,100 with 80.8% segs; H&H 17.3/52.1; platelets 178,000; electrolytes are normal; Glucose is 242 ; creatinine 0.90 BUN 29. Chest X-Ray has been reviewed, see above. Exam (Progress Note) - Constitutional Vitals: Period Temp Pulse Resp BP Sys/Suarez Pulse Ox Last 24 Hr 96.8 F-97.9 F 62-110 16-20 102-168/65-78 92-99 Exam: Chest... See above Heart no gallop Abdomen is nontender and nondistended; bowel sounds are positive 4 Extremities with nothing to suggest acute deep venous thrombophlebitis Psychiatric oriented 3 Neurologic long-term motor function is intact Plan: Continue present orders and medications. Will likely discharge home tomorrow if no acute changes today or tonight. Encouraged patient to be up and ambulating as tolerated today. Results - Labs CBC & BMP: 01/22/17 06:39 01/22/17 06:39 Lab Results: I have reviewed the past 24 hour labs
[2017-01-22] MEDS: methylPREDNISolone SOD SUC 40 MG/1 ML VIAL IV SCH ×2 (11:24→23:02)
[2017-01-22] MEDS: LEVOFLOXACIN INJ 250 MG in PREMIX 1 EACH IV SCH (16:14)
[2017-01-22] MEDS: ALLOPURINOL 100 MG TABLET PO SCH (17:33)
[2017-01-22] MEDS: DESVENLAFAXINE 50 MG TABLET PO SCH (17:33)
[2017-01-22] MEDS: ROSUVASTATIN 10 MG TABLET PO SCH (17:33)
[2017-01-22] MEDS: GLIMEPIRIDE 2 MG TABLET PO SCH (17:34)
[2017-01-23] MEDS: CLINDAMYCIN INJ 300 MG in PREMIX 1 EACH IV SCH ×2 (03:24→09:19)
[2017-01-23] MEDS: ALBUTEROL/IPRATROPIUM 3 ML NEB RESP TX SCH (07:30)
[2017-01-23] MEDS: DORNASE ALFA 2.5 MG/2.5 ML VIAL RESP TX SCH (07:46)
[2017-01-23 07:51] VITALS: BP 148/74
[2017-01-23] MEDS: sitaGLIPtin 100 MG TABLET PO SCH (09:19)
[2017-01-23] MEDS: CHLORTHALIDONE 25 MG TABLET PO SCH (09:19)
[2017-01-23] MEDS: NICOTINE 21 MG/24 HR PATCH TRANSDERM SCH (09:19)
[2017-01-23] MEDS: PANTOPRAZOLE 40 MG TABLET PO SCH (09:19)
[2017-01-23] MEDS: DIVALPROEX 250 MG TABLET PO SCH (09:19)
[2017-01-23] MEDS: CARVEDILOL 6.25 MG TABLET PO SCH (09:19)
[2017-01-23] MEDS: methylPREDNISolone SOD SUC 40 MG/1 ML VIAL IV SCH ×2 (09:20→12:17)
[2017-01-23] MEDS: INSULIN LISPRO 100 UNIT/ML SUBCUT SCH ×2 (09:20→12:17)
--- NOTE | 2017-01-23 10:50 | Discharge Summary ---
Hospital Course - Hospital Course Hospital Course: Darwin Madsen, ANP-BC, GNP-BC, acting as scribe for Dr. Ki Wesley Mrs. Pryor is a 71-year-old white female who is admitted [facility]/14/2017 from [facility] for pneumonia, shortness of breath, productive cough, fever, hypoxemia, and hypotension. She is the grandmother of Valentine Kenny RN, who works at our clinic. She was admitted and started on Levaquin and Cleocin. Sputum Gram stain showed few gram-positive cocci, rare gram-negative rods, and few gram-positive rods. Sputum culture grew no organisms. She does remain hyperinflated, but her wheezes have significantly improved over time. She has had difficulty mobilizing her secretions that she was treated with DuoNeb's with Acapella as well as Pulmozyme twice daily. At discharge, her breathing is markedly improved with very minimal wheeze. She remains hyperinflated with prolonged and slightly incomplete expiration. We will continue on low-dose prednisone until her return appointment at our clinic. Her chest x-ray shows a small amount of retained secretions in the right lower lobe and lingula, however, this lags behind her clinical improvement. Patient has a long history of tobacco abuse. We have spoke with her regarding the absolute need for cessation every day during this admission. She has been treated with NicoDerm patches and requested a prescription for this at discharge. The patient has known diabetes mellitus. Hemoglobin A1c at admission was elevated at 7.1% showing less than optimal control of her diabetes mellitus. During this hospitalization she has required the addition of Solu-Medrol and, therefore, her glucoses have been markedly elevated. We will continue her Amaryl at her home dose, but added Januvia 100 mg daily. She will continue this at discharge. During this hospitalization she has also been covered with sliding scale insulin. During this admission the patient has had difficult to control hypertension. Chlorthalidone was added to her regular home medicines and her blood pressures, and are much better controlled. We will continue this at discharge. Blood cultures grew no organisms. Cold agglutinins were negative at 1:4. Legionella was negative. At discharge, white count is 10,100 with 80.8% segs, 13.7% lymphs, and 4.0% monos; H&H 17.3/52.1 with normal indices and normal red blood cell distribution with; platelet count 178,000; creatinine 0.90, BUN 29, sodium 134, potassium 4.5 , magnesium 2.4; liver function tests within normal limits; calcium 8.8, albumin 3.3, total protein 7.6; TSH and free T4 were normal at 0.801 and 1.03 respectively; urinalysis showed no evidence of infection. For more information regarding Mrs. Pryor's past medical history, surgical history, family history, social history, admit labs, admit x-ray and admit exam , please see the admission note dated 01/14/2017. Impression: #1 Acute right middle lobe and lingular pneumonia secondary to gram-positive cocci, gram-negative rods, and/or gram-positive rods--- resolving #2 Shortness of breath and productive cough secondary to #1 and/or acute exacerbation of COPD #3 Tobacco use #4 COPD #5 Type II Diabetes Mellitus #6 Hypertension #7 See past history Plan: Prednisone 10 mg daily until her follow-up appointment at [facility], Levaquin 500mg daily x 5 days, Cleocin 300mg Q8H x 5 days, Allopurinol 100 mg at supper, Tessalon 200 mg 3 times daily as needed cough, Coreg 6.25 mg twice daily, Chlorthalidone 25 mg daily, Catapres 0.2 mg at supper , Pristiq 50 mg with supper, Depakote 250 mg twice daily, Amaryl 6 mg at supper , Mucinex 600 mg twice daily, NicoDerm CQ 21 g patch daily, Protonix 40 mg daily, Crestor 10 mg at supper, and Januvia 100 mg daily. The patient will be scheduled follow-up with Mikaela Wong, nurse practitioner, in approximately 2 weeks with a chest x-ray. She can be seen sooner if needed. Specialty Discharge - Follow Up or Referrals Follow up with: Mikaela Wong CFNP [Advanced Practice Nurse] - 2 Weeks (with CXR) Discharge Plan - Discharge Data Disposition: Disch To Home/Self Care Condition at Discharge: Stable - Discharge Medications New Chlorthalidone [Hygroton] 25 mg PO DAILY #30 tablet Levofloxacin Tab [Levaquin Tab] 500 mg PO DAILY #5 tablet Nicotine 21 mg/24 Hr Patch [Nicoderm CQ 21 mg/24 hr Patch] 1 patch TRANSDERM DAILY #30 patch Pantoprazole Tab [Protonix Tab] 40 mg PO DAILY #30 tablet guaiFENesin ER TAB [Mucinex] 600 mg PO BID #60 tablet sitaGLIPtin [Januvia] 100 mg PO DAILY #30 tablet Benzonatate [Tessalon] 200 mg PO TID PRN #30 capsule PRN Reason: Cough Clindamycin Cap [Cleocin Cap] 300 mg PO Q8HR #15 capsule predniSONE TAB [PredniSONE] 10 mg PO DAILY #21 tablet Continue Desvenlafaxine [Pristiq] 50 mg PO PC SUPPER Divalproex [Depakote] 250 mg PO BID Rosuvastatin [Crestor] 10 mg PO PC SUPPER cloNIDine HCl [Clonidine HCl] 0.2 mg PO PC SUPPER Glimepiride 6 mg PO PC SUPPER Allopurinol 100 mg PO PC SUPPER Carvedilol 6.25 mg PO BID - Follow Up or Referral - Forms/Instructions Exam - Constitutional Vitals: Period Temp Pulse Resp BP Sys/Suarez Pulse Ox Last 24 Hr 97.4 F-97.8 F 65-86 18-25 136-148/53-74 91-99 Discharge Results Labs on day of discharge: Labs from last 24 hours 01/23/17 01/22/17 01/22/17 07:23 20:28 16:10 POC Glucose 190 H 307 H 322 H 01/22/17 10:53 POC Glucose 231 H DS: Provider Date of admission: 01/14/17 11:33 Primary care physician: Ki Wesley MD Attending physician on admission: Ki Wesley MD Consults: 01/14/17 14:06 Consult to Pastoral Services [CONS] Routine Comment: Pastoral Screen: Request Office Clin Asst Visit 01/14/17 14:20 Consult to Pastoral Services [CONS] Routine Comment: Pastoral Screen: Request Office Clin Asst Visit Discharging clinician: MONCHO Inman
--- NOTE | 2017-01-23 10:50 | Pulmonology Progress Note ---
Pulmonary - PN: Subj Interval history: Darwin Madsen, ANP-BC, GNP-BC, acting as scribe for Dr. Ki Wesley Mrs. Pryor is a 71-year-old white female who is admitted [facility]/14/2017 from [facility] for pneumonia, shortness of breath, productive cough, fever, hypoxemia, and hypotension. She is the grandmother of Valentine Kenny RN, who works at our clinic. 01/15/2017. Mrs. Pryor's chest remains hyperinflated, however, she is moving more air today. She reports that her breathing has improved since admission. She is presently being treated with Cleocin and Levaquin. She is also on Solu- Medrol and inhalation therapy. Sputum for Gram stain, culture, and sensitivity has been ordered. Thus far, she has been unable to produce a sputum for testing. Blood cultures are growing no organisms a day 1. Today's chest x-ray continues to show increased markings in the bases. Medications have been reviewed. We made no changes today. Labs have been reviewed. White count is 14,900 with 93.0% segs; H&H 14.9/45.0; platelet count 130,000; creatinine 0.90, BUN 27, electrolytes are normal 01/16/2017. The patient continues to have loose large airway congestion and is having difficulty mobilizing her secretions. We will start Pulmozyme twice daily. She is receiving chest physiotherapy but we will ask her Acapella to be done with all breathing treatments. We will repeat her chest x-ray in the morning. This patient has a significant tobacco abuse history. She is somewhat anxious regarding this. We will start the NicoDerm 21 g patch. Tobacco cessation was discussed at length with the patient today. Janice Jones RN, was present. 01/17/2017. The patient was seen today along with her and Jolene Felder RN. She continues to have difficulty expectorating. Yesterday we added Pulmozyme and Acapella. This is helping. On chest exam her secretions are loosening up. She was started on a NicoDerm patch yesterday as well. She is tolerating this fine. Cold agglutinins are negative. Legionella titers negative. 01/20/2017. The patient was seen today along with Gigi Connor RN. Over the weekend, the patient had some problems with her glucoses and blood pressure. She was started on chlorthalidone with as needed Apresoline. Her blood pressures are lower. Her Solu-Medrol was also discontinued over the weekend. However, on today's exam the patient has a small amount of end expiratory wheeze. We will further adjust her sliding scale insulin and restart Solu- Medrol 20 mg IV every 12 hours. Patient is on her home dose of Amaryl. 01/21/2017. Despite increasing the patient's sliding-scale insulin, her glucoses have remained elevated and this is certainly aggravated by the her necessary steroids. She is only been on Amaryl at home so we will add Januvia 100 mg daily. From a pulmonary standpoint, the patient has continued large airway congestion and has difficulty mobilizing her secretions. She is on inhalation therapy with Acapella, Pulmozyme, Solu-Medrol, and Mucinex. We will continue this for now. We will repeat a chest x-ray tomorrow. 01/22/17 Patient was seen today along with MODESTA Lombardo. She was started on Januvia yesterday due to uncontrolled glucoses. Since starting this medication yesterday her glucoses have ranged from 183-290 which is mildly improved, of note she is still on a small dose of SoluMedrol for her exacerbation of COPD and resolving pneumonia. She does have some continued large airway congestion but she is mobilizing secretions somewhat better and per her CXR the right sided infiltrate has basically resolved while the lingular infiltrate has resolved about 80%. She continues to be on inhalation therapy with Acapella, Pulmozyme, along with steroids as above and mucinex. She is also using Nicotine patches and would like a prescription for these on discharge. We have discussed with her that we will keep her one more day to monitor her and as long as no acute changes she will likely go home tomorrow. Encouraged her to be up and ambulating as much as tolerated. She verbalized understanding of this. 01/23/17. The patient was seen today along with Gigi Connor RN. She states that she has been ambulating in the halls without increased shortness of breath. She reports that she was able to expectorate a good bit of sputum last night. Her glucoses have remained elevated, but she has been on Solumedrol. We will change this to low dose Prednisone at discharge. There are no positive culture. Medications have been reviewed. Labs have been reviewed. No new labs were drawn today. Exam (Progress Note) - Constitutional Vitals: Period Temp Pulse Resp BP Sys/Suarez Pulse Ox Last 24 Hr 97.4 F-97.8 F 65-86 18-25 136-148/53-74 91-99 Exam: Chest with prolonged and somewhat incomplete expiration Heart no gallop Abdomen is nontender and nondistended; bowel sounds are positive 4 Extremities with nothing to suggest acute deep venous thrombophlebitis Psychiatric oriented 3 Neurologic long-term motor function is intact Plan: She has now met maximum hospital benefit. She will be discharged home today. Please see the discharge note for more information. Results - Labs CBC & BMP: 01/22/17 06:39 01/22/17 06:39
== END 2017-01-23 12:53 | disposition home or self-care (01) | DRG 190 ==
LOC: N.5E 11:33
PROVIDERS: ADMIT Internal Medicine Pulmonary Disease; ATTEND Internal Medicine Pulmonary Disease

== ENCOUNTER 2018-02-17 11:06 | Inpatient (IN) ==
[2018-02-21 10:09] VITALS: BP 130/74
== END 2018-02-21 14:18 | disposition home or self-care (01) | DRG 981 ==
LOC: N.CL 11:06 → N.TELEN 17:35 → N.CC 02-18 01:10 → N.TELEN 02-19 16:36
PROVIDERS: ADMIT Internal Medicine Cardiovascular Disease; ATTEND Internal Medicine Cardiovascular Disease
PROC: CLCCHCL (ICD-10-PCS; 2018-02-17 16:15)

== ENCOUNTER 2021-04-11 12:35 | Inpatient (IN) ==
[2021-04-11] MEDS ORDERED: LEVOFLOXACIN INJ 750 MG/150 ML PREMIX IV STA (18:27)
[2021-04-11] MEDS ORDERED: ASPIRIN 325 MG TABLET PO STA (18:27)
[2021-04-11] MEDS ORDERED: methylPREDNISolone SOD SUC 125 MG/2 ML VIAL IV STA (18:27)
[2021-04-11] MEDS ORDERED: ONDANSETRON 4 MG/2 ML VIAL IV STA (18:27)
[2021-04-11] MEDS ORDERED: ALBUTEROL NEB SOLN 5 MG/ML 20 ML/BOTTLE CONT NEB SCH (18:30)
[2021-04-11 18:56] LABS: Basophils % 0.1 % (0.0-0.8); Hematocrit 41.6 VOL% (35.7-47.0); Hemoglobin 13.5 GM/DL (12.0-16.0); Immature Granulocytes % 1.1 %; Immature Granulocytes Absolute 0.19 #; Lymphocytes # 0.9 10*3/uL (1.4-4.0); Lymphocytes % 5.2 % (21.3-54.2); Mean Corpuscular HGB Conc 32.5 GM/DL (32-36); Mean Corpuscular Volume 93.1 FL (87-102); Mean Platelet Volume 11.3 FL (9.6-12.0); Monocytes % 4.9 % (1.7-12.7); Neutrophils % 88.7 % (38.7-73.9); Platelet Count 228 T/CUMM (130-400); Red Blood Count 4.47 MC/CUMM (3.8-5.5); Red Cell Distribution Width 13.4 % (9.3-17.3)
[2021-04-11] MEDS ORDERED: AMINOPHYLLINE 125 MG in SODIUM CHLORIDE 0.9% 100 ML IV ONE (18:57)
[2021-04-11 19:07] LABS: INR 0.9; PT Patient Result 10.2 SECS (10.5-12.0)
[2021-04-11 19:26] LABS: Alanine Aminotransferase 26 U/L (13-56); Albumin 4.1 G/DL (3.4-5.0); Alkaline Phosphatase 163 U/L (45-117); Aspartate Amino Transferase 14 U/L (0-37); Bilirubin,Total < 0.39 MG/DL (0.20-1.00); Blood Urea Nitrogen 47 MG/DL (7-18); Calcium 10.2 MG/DL (8.5-10.1); Carbon Dioxide 28 MMOL/L (21-32); Estimated Glom Filtration Rate 24 ML/MIN; Glucose 329 MG/DL (74-106); Osmolality,Calculated 297.8 MOS/KG (273-304); Potassium 4.8 MMOL/L (3.5-5.1); Sodium 137 MMOL/L (136-145)
[2021-04-11] MEDS ORDERED: CLINDAMYCIN INJ 900 MG/50 ML PREMIX IV STA (19:26)
[2021-04-11] MEDS ORDERED: INSULIN REGULAR 100 UNIT/ML SUBCUT STA (19:31)
[2021-04-11] MEDS ORDERED: ONDANSETRON 4 MG/2 ML VIAL IV PRN (20:02)
[2021-04-11] MEDS ORDERED: DEXTROSE 50% 25 GM/50 ML VIAL IV PRN ×2 (20:02)
[2021-04-11] MEDS ORDERED: GLUCAGON 1 MG VIAL IM PRN (20:02)
[2021-04-11] MEDS ORDERED: ACETAMINOPHEN 325 MG TABLET PO PRN (20:02)
[2021-04-11] MEDS ORDERED: LACTULOSE 20 GM/30 ML UDCUP PO PRN (20:05)
[2021-04-11] MEDS ORDERED: CALCIUM CARBONATE CHEW 500 MG TABLET PO PRN (20:05)
[2021-04-11] MEDS ORDERED: traZODone 50 MG TABLET PO PRN (20:05)
[2021-04-11] MEDS: ENOXAPARIN 40 MG/0.4 ML SYRINGE SUBCUT SCH (20:48)
[2021-04-11] MEDS: INSULIN REGULAR 100 UNIT/ML SUBCUT SCH (22:00)
[2021-04-11] MEDS: MONTELUKAST 10 MG TABLET PO SCH (22:00)
[2021-04-11] MEDS: DOCUSATE SODIUM 100 MG CAPSULE PO SCH (22:00)
[2021-04-11] MEDS ORDERED: AMINOPHYLLINE 500 MG in SODIUM CHLORIDE 0.9% 480 ML IV SCH (23:00)
[2021-04-11] MEDS: ALBUTEROL/IPRATROPIUM 3 ML NEB RESP TX SCH (23:47)
[2021-04-12] MEDS: BENZTROPINE 1 MG TABLET PO SCH ×4 (00:18→20:35)
[2021-04-12] MEDS: buPROPion SR 100 MG TABLET PO SCH ×3 (00:18→20:36)
[2021-04-12 01:50] LABS: Basophils % 0.1 % (0.0-0.8); Hematocrit 38.5 VOL% (35.7-47.0); Hemoglobin 12.5 GM/DL (12.0-16.0); Immature Granulocytes % 1.3 %; Immature Granulocytes Absolute 0.17 #; Lymphocytes # 0.3 10*3/uL (1.4-4.0); Lymphocytes % 2.5 % (21.3-54.2); Mean Corpuscular HGB Conc 32.5 GM/DL (32-36); Mean Corpuscular Volume 93.2 FL (87-102); Mean Platelet Volume 10.6 FL (9.6-12.0); Monocytes % 1.8 % (1.7-12.7); Neutrophils % 94.3 % (38.7-73.9); Platelet Count 230 T/CUMM (130-400); Red Blood Count 4.13 MC/CUMM (3.8-5.5); Red Cell Distribution Width 13.4 % (9.3-17.3); White Blood Count 13.3 T/CUMM (4-12)
[2021-04-12 02:15] LABS: Thyroid Stimulating Hormone 0.24 uIU/ml (0.358-3.74)
[2021-04-12 02:37] LABS: Lymphocytes 1 % (20-55); Segmented Neutrophils 99 % (50-85); Total Cells Counted 100
[2021-04-12 02:38] LABS: Platelet Estimate Normal; Polychromasia Slight
[2021-04-12] MEDS: ALBUTEROL/IPRATROPIUM 3 ML NEB RESP TX SCH ×6 (03:10→23:03)
[2021-04-12] MEDS: methylPREDNISolone SOD SUC 40 MG/1 ML VIAL IV SCH ×3 (04:35→20:35)
[2021-04-12] MEDS ORDERED: SPIRONOLACTONE 25 MG TABLET PO SCH (09:00)
[2021-04-12] MEDS: NICOTINE 21 MG/24 HR PATCH TRANSDERM SCH (09:16)
[2021-04-12] MEDS: INSULIN REGULAR 100 UNIT/ML SUBCUT SCH ×4 (09:17→21:59)
[2021-04-12] MEDS: PANTOPRAZOLE 40 MG TABLET PO SCH (09:17)
[2021-04-12] MEDS: ASPIRIN EC 81 MG TABLET PO SCH (09:18)
[2021-04-12] MEDS: DOCUSATE SODIUM 100 MG CAPSULE PO SCH ×2 (09:18→20:36)
[2021-04-12] MEDS: GLIMEPIRIDE 4 MG TABLET PO SCH ×2 (09:18→20:36)
[2021-04-12 10:37] LABS: Calcium 10.1 MG/DL (8.5-10.1); Osmolality,Calculated 299.7 MOS/KG (273-304)
[2021-04-12] MEDS ORDERED: THEOPHYLLINE ER 100 MG TABLET PO SCH (11:00)
[2021-04-12] MEDS: METOPROLOL SUCCINATE XL 25 MG TABLET PO SCH (12:53)
[2021-04-12] MEDS: ASCORBIC ACID 500 MG TABLET PO SCH ×2 (12:53→20:35)
[2021-04-12] MEDS: THEOPHYLLINE ER (24 HR) 200 MG CAPSULE PO SCH ×2 (16:41→17:05)
[2021-04-12] MEDS: ROSUVASTATIN 10 MG TABLET PO SCH (17:46)
[2021-04-12] MEDS: DESVENLAFAXINE 50 MG TABLET PO SCH (17:47)
[2021-04-12] MEDS: ENOXAPARIN 40 MG/0.4 ML SYRINGE SUBCUT SCH (20:35)
[2021-04-12] MEDS: LINACLOTIDE 145 MCG CAPSULE PO SCH (20:35)
[2021-04-12] MEDS: MONTELUKAST 10 MG TABLET PO SCH (20:36)
[2021-04-12] MEDS: CLOPIDOGREL 75 MG TABLET PO SCH (20:36)
[2021-04-12] MEDS: ISOSORBIDE MONONITRATE 30 MG TABLET PO SCH (20:36)
[2021-04-12] MEDS: LEVOFLOXACIN INJ 500 MG/100 ML PREMIX IV SCH (21:58)
[2021-04-13] MEDS: ALBUTEROL/IPRATROPIUM 3 ML NEB RESP TX SCH ×6 (02:54→23:05)
[2021-04-13] MEDS: methylPREDNISolone SOD SUC 40 MG/1 ML VIAL IV SCH ×3 (04:37→21:05)
[2021-04-13 06:29] LABS: Basophils % 0.2 % (0.0-0.8); Hematocrit 38.1 VOL% (35.7-47.0); Hemoglobin 12.1 GM/DL (12.0-16.0); Immature Granulocytes % 3.6 %; Immature Granulocytes Absolute 0.77 #; Lymphocytes # 0.8 10*3/uL (1.4-4.0); Lymphocytes % 3.8 % (21.3-54.2); Mean Corpuscular HGB Conc 31.8 GM/DL (32-36); Mean Corpuscular Volume 94.8 FL (87-102); Monocytes % 4.5 % (1.7-12.7); Neutrophils % 87.9 % (38.7-73.9); Platelet Count 194 T/CUMM (130-400); Red Blood Count 4.02 MC/CUMM (3.8-5.5); Red Cell Distribution Width 13.5 % (9.3-17.3); White Blood Count 21.6 T/CUMM (4-12)
[2021-04-13 06:57] LABS: Calcium 10.4 MG/DL (8.5-10.1); Osmolality,Calculated 290.5 MOS/KG (273-304); Potassium 4.4 MMOL/L (3.5-5.1)
[2021-04-13 07:27] LABS: Lymphocytes 7 % (20-55); Platelet Estimate Normal; Segmented Neutrophils 90 % (50-85); Total Cells Counted 100
[2021-04-13] MEDS: THEOPHYLLINE ER (24 HR) 200 MG CAPSULE PO SCH ×2 (10:24→18:20)
[2021-04-13] MEDS: INSULIN REGULAR 100 UNIT/ML SUBCUT SCH ×4 (10:24→21:02)
[2021-04-13] MEDS: BENZTROPINE 1 MG TABLET PO SCH ×3 (10:25→21:05)
[2021-04-13] MEDS: GLIMEPIRIDE 4 MG TABLET PO SCH ×2 (10:25→21:05)
[2021-04-13] MEDS: ASPIRIN EC 81 MG TABLET PO SCH (10:25)
[2021-04-13] MEDS: NICOTINE 21 MG/24 HR PATCH TRANSDERM SCH (10:26)
[2021-04-13] MEDS: PANTOPRAZOLE 40 MG TABLET PO SCH (10:27)
[2021-04-13] MEDS: METOPROLOL SUCCINATE XL 25 MG TABLET PO SCH (10:27)
[2021-04-13] MEDS: ASCORBIC ACID 500 MG TABLET PO SCH ×2 (10:29→21:04)
[2021-04-13] MEDS: buPROPion SR 100 MG TABLET PO SCH ×2 (10:30→21:05)
[2021-04-13] MEDS: DOCUSATE SODIUM 100 MG CAPSULE PO SCH ×2 (10:33→21:11)
[2021-04-13] MEDS: ROSUVASTATIN 10 MG TABLET PO SCH (18:21)
[2021-04-13] MEDS: DESVENLAFAXINE 50 MG TABLET PO SCH (18:21)
[2021-04-13] MEDS: ENOXAPARIN 40 MG/0.4 ML SYRINGE SUBCUT SCH (21:04)
[2021-04-13] MEDS: LINACLOTIDE 145 MCG CAPSULE PO SCH (21:04)
[2021-04-13] MEDS: MONTELUKAST 10 MG TABLET PO SCH (21:05)
[2021-04-13] MEDS: ISOSORBIDE MONONITRATE 30 MG TABLET PO SCH (21:05)
[2021-04-13] MEDS: CLOPIDOGREL 75 MG TABLET PO SCH (21:05)
[2021-04-13] MEDS: LEVOFLOXACIN INJ 500 MG/100 ML PREMIX IV SCH (21:16)
[2021-04-14] MEDS: ALBUTEROL/IPRATROPIUM 3 ML NEB RESP TX SCH ×6 (02:55→23:00)
[2021-04-14] MEDS: methylPREDNISolone SOD SUC 40 MG/1 ML VIAL IV SCH (04:14)
[2021-04-14 05:40] LABS: Hematocrit 35.6 VOL% (35.7-47.0); Lymphocytes % 3.5 % (21.3-54.2); Mean Corpuscular HGB Conc 33.7 GM/DL (32-36); Mean Corpuscular Volume 91.3 FL (87-102); Mean Platelet Volume 11.3 FL (9.6-12.0); Monocytes % 5.9 % (1.7-12.7); Neutrophils % 83.9 % (38.7-73.9); Platelet Count 178 T/CUMM (130-400); Red Cell Distribution Width 13.3 % (9.3-17.3); White Blood Count 18.5 T/CUMM (4-12)
[2021-04-14 05:41] LABS: Basophils # 0.1 10*3/uL (0.0-0.2); Basophils % 0.6 % (0.0-0.8); Immature Granulocytes % 6.1 %; Immature Granulocytes Absolute 1.12 #; Lymphocytes # 0.7 10*3/uL (1.4-4.0)
[2021-04-14 06:30] LABS: Band Neutrophils 1 % (0-10); Hypochromasia Slight; Lymphocytes 3 % (20-55); Microcytosis 1+; Segmented Neutrophils 89 % (50-85); Total Cells Counted 100
[2021-04-14] MEDS: METOPROLOL SUCCINATE XL 25 MG TABLET PO SCH (08:00)
[2021-04-14] MEDS: INSULIN REGULAR 100 UNIT/ML SUBCUT SCH ×4 (08:00→20:42)
[2021-04-14] MEDS: GLIMEPIRIDE 4 MG TABLET PO SCH ×2 (08:01→20:43)
[2021-04-14] MEDS: PANTOPRAZOLE 40 MG TABLET PO SCH (08:01)
[2021-04-14] MEDS: THEOPHYLLINE ER (24 HR) 200 MG CAPSULE PO SCH ×2 (08:01→16:41)
[2021-04-14] MEDS: ASCORBIC ACID 500 MG TABLET PO SCH ×2 (08:02→20:43)
[2021-04-14] MEDS: DOCUSATE SODIUM 100 MG CAPSULE PO SCH ×2 (08:03→20:44)
[2021-04-14] MEDS: buPROPion SR 100 MG TABLET PO SCH ×2 (08:03→20:43)
[2021-04-14] MEDS: BENZTROPINE 1 MG TABLET PO SCH ×3 (08:03→20:44)
[2021-04-14] MEDS: ASPIRIN EC 81 MG TABLET PO SCH (08:03)
[2021-04-14] MEDS: NICOTINE 21 MG/24 HR PATCH TRANSDERM SCH (08:04)
[2021-04-14] MEDS: predniSONE 20 MG TABLET PO SCH ×2 (08:49→20:44)
[2021-04-14] MEDS: ROSUVASTATIN 10 MG TABLET PO SCH ×2 (16:41→17:01)
[2021-04-14] MEDS: DESVENLAFAXINE 50 MG TABLET PO SCH ×2 (16:41→17:01)
[2021-04-14] MEDS: ENOXAPARIN 40 MG/0.4 ML SYRINGE SUBCUT SCH (20:42)
[2021-04-14] MEDS: INSULIN GLARGINE 100 UNIT/ML SUBCUT SCH (20:43)
[2021-04-14] MEDS: MONTELUKAST 10 MG TABLET PO SCH (20:43)
[2021-04-14] MEDS: CLOPIDOGREL 75 MG TABLET PO SCH (20:44)
[2021-04-14] MEDS: ISOSORBIDE MONONITRATE 30 MG TABLET PO SCH (20:44)
[2021-04-14] MEDS: LINACLOTIDE 145 MCG CAPSULE PO SCH (20:44)
[2021-04-14] MEDS: LEVOFLOXACIN INJ 500 MG/100 ML PREMIX IV SCH (20:53)
[2021-04-15] MEDS: ALBUTEROL/IPRATROPIUM 3 ML NEB RESP TX SCH ×6 (04:19→23:32)
[2021-04-15 06:39] LABS: Basophils # 0.2 10*3/uL (0.0-0.2); Basophils % 0.8 % (0.0-0.8); Eosinophils % 0.1 % (0.00-10.9); Hematocrit 36.5 VOL% (35.7-47.0); Hemoglobin 12.2 GM/DL (12.0-16.0); Immature Granulocytes % 7.7 %; Immature Granulocytes Absolute 1.47 #; Lymphocytes # 0.9 10*3/uL (1.4-4.0); Lymphocytes % 4.7 % (21.3-54.2); Mean Corpuscular HGB Conc 33.4 GM/DL (32-36); Mean Corpuscular Volume 91.7 FL (87-102); Mean Platelet Volume 11.8 FL (9.6-12.0); Monocytes % 6.3 % (1.7-12.7); NRBC # 0.02 10*3/uL; Neutrophils % 80.4 % (38.7-73.9); Platelet Count 195 T/CUMM (130-400); Red Blood Count 3.98 MC/CUMM (3.8-5.5); Red Cell Distribution Width 13.4 % (9.3-17.3)
[2021-04-15 07:10] LABS: Lymphocytes 5 % (20-55); Platelet Estimate Normal; Segmented Neutrophils 91 % (50-85); Total Cells Counted 100
[2021-04-15 07:17] LABS: Calcium 10.1 MG/DL (8.5-10.1); Osmolality,Calculated 280.1 MOS/KG (273-304); Potassium 4.5 MMOL/L (3.5-5.1)
[2021-04-15] MEDS: NICOTINE 21 MG/24 HR PATCH TRANSDERM SCH (09:42)
[2021-04-15] MEDS: ASCORBIC ACID 500 MG TABLET PO SCH ×2 (09:42→21:10)
[2021-04-15] MEDS: INSULIN REGULAR 100 UNIT/ML SUBCUT SCH ×4 (09:42→21:09)
[2021-04-15] MEDS: PANTOPRAZOLE 40 MG TABLET PO SCH (09:43)
[2021-04-15] MEDS: predniSONE 20 MG TABLET PO SCH (09:43)
[2021-04-15] MEDS: METOPROLOL SUCCINATE XL 25 MG TABLET PO SCH (09:43)
[2021-04-15] MEDS: DOCUSATE SODIUM 100 MG CAPSULE PO SCH ×2 (09:43→21:10)
[2021-04-15] MEDS: GLIMEPIRIDE 4 MG TABLET PO SCH ×2 (09:43→21:11)
[2021-04-15] MEDS: BENZTROPINE 1 MG TABLET PO SCH ×3 (09:43→21:10)
[2021-04-15] MEDS: THEOPHYLLINE ER (24 HR) 200 MG CAPSULE PO SCH ×2 (09:44→17:29)
[2021-04-15] MEDS: buPROPion SR 100 MG TABLET PO SCH ×2 (09:44→21:10)
[2021-04-15] MEDS: ASPIRIN EC 81 MG TABLET PO SCH (09:44)
[2021-04-15] MEDS: DESVENLAFAXINE 50 MG TABLET PO SCH (17:29)
[2021-04-15] MEDS: ROSUVASTATIN 10 MG TABLET PO SCH (17:29)
[2021-04-15] MEDS: ENOXAPARIN 40 MG/0.4 ML SYRINGE SUBCUT SCH (21:08)
[2021-04-15] MEDS: LEVOFLOXACIN INJ 500 MG/100 ML PREMIX IV SCH (21:09)
[2021-04-15] MEDS: INSULIN GLARGINE 100 UNIT/ML SUBCUT SCH (21:09)
[2021-04-15] MEDS: CLOPIDOGREL 75 MG TABLET PO SCH (21:10)
[2021-04-15] MEDS: MONTELUKAST 10 MG TABLET PO SCH (21:10)
[2021-04-15] MEDS: ISOSORBIDE MONONITRATE 30 MG TABLET PO SCH (21:11)
[2021-04-15] MEDS: LINACLOTIDE 145 MCG CAPSULE PO SCH (21:46)
[2021-04-16] MEDS: ALBUTEROL/IPRATROPIUM 3 ML NEB RESP TX SCH ×3 (02:30→11:40)
[2021-04-16 05:59] LABS: Basophils # 0.2 10*3/uL (0.0-0.2); Basophils % 0.8 % (0.0-0.8); Hemoglobin 12.9 GM/DL (12.0-16.0); Immature Granulocytes % 8.8 %; Immature Granulocytes Absolute 1.69 #; Lymphocytes # 3.6 10*3/uL (1.4-4.0); Lymphocytes % 18.5 % (21.3-54.2); Mean Corpuscular HGB Conc 31.5 GM/DL (32-36); Mean Corpuscular Volume 94.5 FL (87-102); Mean Platelet Volume 10.8 FL (9.6-12.0); Monocytes % 9.3 % (1.7-12.7); NRBC # 0.11 10*3/uL; Neutrophils % 62.6 % (38.7-73.9); Platelet Count 223 T/CUMM (130-400); Red Blood Count 4.34 MC/CUMM (3.8-5.5); Red Cell Distribution Width 13.6 % (9.3-17.3); White Blood Count 19.2 T/CUMM (4-12)
[2021-04-16 06:18] LABS: Calcium 10.1 MG/DL (8.5-10.1); Osmolality,Calculated 281.5 MOS/KG (273-304); Potassium 4.3 MMOL/L (3.5-5.1)
[2021-04-16 06:29] LABS: Lymphocytes 27 % (20-55); Segmented Neutrophils 65 % (50-85); Total Cells Counted 100
[2021-04-16 06:30] LABS: Hypochromasia Slight; Microcytosis 1+
[2021-04-16 06:31] LABS: Atypical Lymphocytes Few
[2021-04-16] MEDS ORDERED: predniSONE 10 MG TABLET PO SCH (09:00)
[2021-04-16] MEDS: PANTOPRAZOLE 40 MG TABLET PO SCH (09:18)
[2021-04-16] MEDS: BENZTROPINE 1 MG TABLET PO SCH (09:18)
[2021-04-16] MEDS: GLIMEPIRIDE 4 MG TABLET PO SCH (09:18)
[2021-04-16] MEDS: THEOPHYLLINE ER (24 HR) 200 MG CAPSULE PO SCH (09:19)
[2021-04-16] MEDS: DOCUSATE SODIUM 100 MG CAPSULE PO SCH (09:19)
[2021-04-16] MEDS: ASPIRIN EC 81 MG TABLET PO SCH (09:19)
[2021-04-16] MEDS: ASCORBIC ACID 500 MG TABLET PO SCH (09:19)
[2021-04-16] MEDS: METOPROLOL SUCCINATE XL 25 MG TABLET PO SCH (09:20)
[2021-04-16] MEDS: NICOTINE 21 MG/24 HR PATCH TRANSDERM SCH (09:21)
[2021-04-16] MEDS: buPROPion SR 100 MG TABLET PO SCH (09:26)
[2021-04-16] MEDS: INSULIN REGULAR 100 UNIT/ML SUBCUT SCH (09:27)
[2021-04-16 13:46] VITALS: BP 113/54
== END 2021-04-16 14:15 | disposition home or self-care (01) | DRG 190 ==
LOC: N.ED 12:35 → N.EDINP 20:02 → SUATTDRO 20:02 → N.3E 22:20
PROVIDERS: ADMIT Hospitalist; ATTEND Internal Medicine Nephrology

== ENCOUNTER 2022-05-04 18:29 | Inpatient (IN) ==
[2022-05-04 19:10] LABS: INR 0.9; PT Patient Result 10.4 SECS (10.1-12.1); Partial Thromboplastin Time 23.5 SECS (23.7-32.9)
[2022-05-04 19:17] LABS: Basophils % 0.2 % (0.0-0.8); Hematocrit 42.5 VOL% (35.7-47.0); Hemoglobin 12.9 GM/DL (12.0-16.0); Immature Granulocytes % 0.7 %; Immature Granulocytes Absolute 0.11 #; Lymphocytes # 1.2 10*3/uL (1.4-4.0); Lymphocytes % 7.8 % (21.3-54.2); Mean Corpuscular HGB Conc 30.4 GM/DL (32-36); Mean Corpuscular Volume 88.4 FL (87-102); Mean Platelet Volume 10.7 FL (9.6-12.0); Monocytes # 1.8 10*3/uL (0.11-0.8); Monocytes % 11.4 % (1.7-12.7); Neutrophils % 79.9 % (38.7-73.9); Platelet Count 337 T/CUMM (130-400); Red Blood Count 4.81 MC/CUMM (3.8-5.5); Red Cell Distribution Width 16.2 % (9.3-17.3); White Blood Count 15.5 T/CUMM (4-12)
[2022-05-04 19:21] LABS: Albumin 3.5 G/DL (3.4-5.0); Bilirubin,Total 0.4 MG/DL (0.20-1.00); Calcium 9.4 MG/DL (8.5-10.1); Osmolality,Calculated 291.3 MOS/KG (273-304); Potassium 4.8 MMOL/L (3.5-5.1); Total Protein 7.7 G/DL (6.4-8.2)
[2022-05-04] MEDS ORDERED: methylPREDNISolone SOD SUC 125 MG/2 ML VIAL IV STA (19:22)
[2022-05-04] MEDS ORDERED: ALBUTEROL/IPRATROPIUM 3 ML NEB RESP TX STA (19:22)
[2022-05-04] MEDS ORDERED: GLUCAGON 1 MG VIAL IM PRN (21:09)
[2022-05-04] MEDS ORDERED: ACETAMINOPHEN 325 MG TABLET PO PRN (21:09)
[2022-05-04] MEDS ORDERED: ONDANSETRON 4 MG/2 ML VIAL IV PRN (21:09)
[2022-05-04] MEDS ORDERED: ASPIRIN CHEW 81 MG TABLET PO STA (21:24)
[2022-05-04] MEDS ORDERED: DEXTROSE 10% 250 ML BAG IV PRN (21:28)
[2022-05-04] MEDS ORDERED: ISOSORBIDE MONONITRATE 30 MG TABLET PO SCH (22:00)
[2022-05-04] MEDS ORDERED: FUROSEMIDE 40 MG/4 ML VIAL IV STA (22:01)
[2022-05-04] MEDS: CLOPIDOGREL 75 MG TABLET PO SCH (22:09)
[2022-05-04] MEDS: ROSUVASTATIN 20 MG TABLET PO SCH (22:09)
[2022-05-05] MEDS: ALBUTEROL/IPRATROPIUM 3 ML NEB RESP TX SCH ×4 (00:40→20:09)
[2022-05-05 00:58] LABS: Basophils % 0.2 % (0.0-0.8); Hematocrit 38.5 VOL% (35.7-47.0); Hemoglobin 12.1 GM/DL (12.0-16.0); Immature Granulocytes % 0.5 %; Immature Granulocytes Absolute 0.06 #; Lymphocytes % 8.4 % (21.3-54.2); Mean Corpuscular HGB Conc 31.4 GM/DL (32-36); Mean Corpuscular Volume 86.1 FL (87-102); Mean Platelet Volume 11.1 FL (9.6-12.0); Monocytes # 1.3 10*3/uL (0.11-0.8); Monocytes % 11.1 % (1.7-12.7); Neutrophils % 79.8 % (38.7-73.9); Platelet Count 229 T/CUMM (130-400); Red Blood Count 4.47 MC/CUMM (3.8-5.5); Red Cell Distribution Width 16.2 % (9.3-17.3); White Blood Count 12.1 T/CUMM (4-12)
[2022-05-05 01:22] LABS: Calcium 8.8 MG/DL (8.5-10.1); Osmolality,Calculated 286.7 MOS/KG (273-304); Potassium 4.3 MMOL/L (3.5-5.1); Risk Ratio 2.29; Thyroid Stimulating Hormone 1.1 uIU/ml (0.358-3.74)
[2022-05-05] MEDS: LEVOFLOXACIN INJ 750 MG/150 ML PREMIX IV SCH (01:43)
[2022-05-05] MEDS: COENZYME Q10 100 MG CAPSULE PO SCH ×2 (01:51→21:38)
[2022-05-05] MEDS: methylPREDNISolone SOD SUC 40 MG/1 ML VIAL IV SCH ×4 (01:51→21:44)
[2022-05-05] MEDS: DESVENLAFAXINE 50 MG TABLET PO SCH ×2 (05:10→16:59)
[2022-05-05] MEDS: FUROSEMIDE 40 MG/4 ML VIAL IV SCH (09:08)
[2022-05-05] MEDS: INSULIN REGULAR 100 UNIT/ML SUBCUT SCH ×4 (09:08→21:44)
[2022-05-05] MEDS: ENOXAPARIN 60 MG/0.6 ML SYRINGE SUBCUT SCH (09:08)
[2022-05-05] MEDS: PANTOPRAZOLE 40 MG TABLET PO SCH (09:09)
[2022-05-05] MEDS: MONTELUKAST 10 MG TABLET PO SCH (09:09)
[2022-05-05] MEDS: BENZTROPINE 0.5 MG TABLET PO SCH ×3 (09:09→21:38)
[2022-05-05] MEDS: ASPIRIN 325 MG TABLET PO SCH (09:09)
[2022-05-05] MEDS: SPIRONOLACTONE 25 MG TABLET PO SCH (09:09)
[2022-05-05] MEDS: MAGNESIUM CHLORIDE 64 MG TABLET PO SCH (09:09)
[2022-05-05] MEDS: METOPROLOL SUCCINATE XL 25 MG TABLET PO SCH (09:09)
[2022-05-05] MEDS: DOCUSATE SODIUM 100 MG CAPSULE PO SCH ×2 (09:09→21:37)
[2022-05-05] MEDS: ZINC GLUCONATE 50 MG TABLET PO SCH (09:09)
[2022-05-05] MEDS: THEOPHYLLINE ER (24 HR) 400 MG TABLET PO SCH (09:09)
[2022-05-05] MEDS: FLUTICASONE/SALMETEROL 250-50 DISKUS 14 DOSE INH SCH (09:12)
[2022-05-05] MEDS: NITROGLYCERIN 2% OINT 1 INCH/GM PACK TOP SCH ×2 (13:08→16:59)
[2022-05-05] MEDS ORDERED: SEMAGLUTIDE SUBCUT SCH (21:00)
[2022-05-05] MEDS ORDERED: [UNRECOGNIZED DRUG - OTHER] SUBCUT SCH (21:00)
[2022-05-05] MEDS: CLOPIDOGREL 75 MG TABLET PO SCH (21:37)
[2022-05-05] MEDS: ROSUVASTATIN 20 MG TABLET PO SCH (21:38)
[2022-05-05] MEDS: ASCORBIC ACID 500 MG TABLET PO SCH (21:38)
[2022-05-05] MEDS: LINACLOTIDE 145 MCG CAPSULE PO SCH (21:48)
[2022-05-06] MEDS: NITROGLYCERIN 2% OINT 1 INCH/GM PACK TOP SCH ×3 (00:26→11:29)
[2022-05-06] MEDS: ALBUTEROL/IPRATROPIUM 3 ML NEB RESP TX SCH ×4 (01:27→19:55)
[2022-05-06] MEDS: methylPREDNISolone SOD SUC 40 MG/1 ML VIAL IV SCH ×4 (02:27→22:29)
[2022-05-06] MEDS ORDERED: POTASSIUM CHLORIDE RIDER 10 MEQ/100 ML PREMIX IV PRN (08:26)
[2022-05-06] MEDS ORDERED: MAGNESIUM SULF RIDER 2 GM/50 ML PREMIX IV PRN (08:26)
[2022-05-06] MEDS: INSULIN REGULAR 100 UNIT/ML SUBCUT SCH ×4 (09:55→22:43)
[2022-05-06] MEDS: METOPROLOL SUCCINATE XL 25 MG TABLET PO SCH (09:56)
[2022-05-06] MEDS: THEOPHYLLINE ER (24 HR) 400 MG TABLET PO SCH (09:56)
[2022-05-06] MEDS: MONTELUKAST 10 MG TABLET PO SCH (09:58)
[2022-05-06] MEDS: FLUTICASONE/SALMETEROL 250-50 DISKUS 14 DOSE INH SCH (09:58)
[2022-05-06] MEDS: FUROSEMIDE 40 MG/4 ML VIAL IV SCH (09:58)
[2022-05-06] MEDS: DOCUSATE SODIUM 100 MG CAPSULE PO SCH ×2 (09:59→22:30)
[2022-05-06] MEDS: ASPIRIN 325 MG TABLET PO SCH (09:59)
[2022-05-06] MEDS: SPIRONOLACTONE 25 MG TABLET PO SCH (09:59)
[2022-05-06] MEDS: MAGNESIUM CHLORIDE 64 MG TABLET PO SCH (09:59)
[2022-05-06] MEDS: ZINC GLUCONATE 50 MG TABLET PO SCH (09:59)
[2022-05-06] MEDS: ASCORBIC ACID 500 MG TABLET PO SCH ×2 (09:59→22:29)
[2022-05-06] MEDS: BENZTROPINE 0.5 MG TABLET PO SCH ×3 (10:00→22:46)
[2022-05-06] MEDS: PANTOPRAZOLE 40 MG TABLET PO SCH (10:00)
[2022-05-06] MEDS: ENOXAPARIN 60 MG/0.6 ML SYRINGE SUBCUT SCH (10:04)
[2022-05-06] MEDS ORDERED: diphenhydrAMINE CAP 25 MG CAPSULE PO ONE (11:00)
[2022-05-06] MEDS ORDERED: DIAZEPAM 5 MG TABLET PO ONE (11:00)
[2022-05-06 12:46] LABS: Hyaline Casts,Urine 5 /LPF (0-3); Mucus,Urine Occasional /LPF (Occasional); RBC,Urine 1 /HPF (0-4); Squamous Epithelial Cell,Urine Occasional /HPF (0-10)
[2022-05-06 12:52] LABS: Bilirubin,Urine Negative (Negative); Blood, Urine Negative (Negative); Glucose,Urine (UA) Negative (Negative); Ketones,Urine Negative (Negative); Nitrite,Urine Negative (Negative); Protein,Urine Trace mg/dL (Negative); Urine Appearance Clear (Clear); Urine Color Yellow (Yellow); Urine Specific Gravity > 1.030 (1.001-1.035); Urine Urobilinogen 0.2 eU/dL (<2.0)
[2022-05-06] MEDS: DESVENLAFAXINE 50 MG TABLET PO SCH (18:43)
[2022-05-06] MEDS: LINACLOTIDE 145 MCG CAPSULE PO SCH (22:28)
[2022-05-06] MEDS: ROSUVASTATIN 20 MG TABLET PO SCH (22:29)
[2022-05-06] MEDS: CLOPIDOGREL 75 MG TABLET PO SCH (22:29)
[2022-05-06] MEDS: COENZYME Q10 100 MG CAPSULE PO SCH (22:30)
[2022-05-06] MEDS: LEVOFLOXACIN INJ 750 MG/150 ML PREMIX IV SCH (23:03)
[2022-05-07] MEDS: ALBUTEROL/IPRATROPIUM 3 ML NEB RESP TX SCH ×4 (01:14→19:37)
[2022-05-07] MEDS: methylPREDNISolone SOD SUC 40 MG/1 ML VIAL IV SCH ×3 (04:20→22:48)
[2022-05-07 05:16] LABS: Basophils % 0.1 % (0.0-0.8); Hematocrit 38.2 VOL% (35.7-47.0); Hemoglobin 11.7 GM/DL (12.0-16.0); Immature Granulocytes % 0.9 %; Immature Granulocytes Absolute 0.15 #; Lymphocytes # 0.2 10*3/uL (1.4-4.0); Lymphocytes % 1.1 % (21.3-54.2); Mean Corpuscular HGB Conc 30.6 GM/DL (32-36); Mean Corpuscular Volume 87.2 FL (87-102); Mean Platelet Volume 11.4 FL (9.6-12.0); Monocytes # 0.7 10*3/uL (0.11-0.8); Monocytes % 4.2 % (1.7-12.7); Neutrophils % 93.7 % (38.7-73.9); Platelet Count 207 T/CUMM (130-400); Red Blood Count 4.38 MC/CUMM (3.8-5.5); Red Cell Distribution Width 15.8 % (9.3-17.3)
[2022-05-07 05:34] LABS: Calcium 9.6 MG/DL (8.5-10.1); Osmolality,Calculated 294.7 MOS/KG (273-304); Potassium 3.5 MMOL/L (3.5-5.1)
[2022-05-07 05:41] LABS: Hypochromia Slight; Microcytosis Slight; Platelet Estimate Adequate; Total Cells Counted 100
[2022-05-07] MEDS: INSULIN REGULAR 100 UNIT/ML SUBCUT SCH ×4 (08:35→22:46)
[2022-05-07] MEDS: ENOXAPARIN 40 MG/0.4 ML SYRINGE SUBCUT SCH (08:35)
[2022-05-07] MEDS: FUROSEMIDE 40 MG/4 ML VIAL IV SCH (08:39)
[2022-05-07] MEDS: METOPROLOL SUCCINATE XL 25 MG TABLET PO SCH (08:40)
[2022-05-07] MEDS: THEOPHYLLINE ER (24 HR) 400 MG TABLET PO SCH (08:40)
[2022-05-07] MEDS: MAGNESIUM CHLORIDE 64 MG TABLET PO SCH (08:40)
[2022-05-07] MEDS: SPIRONOLACTONE 25 MG TABLET PO SCH (08:41)
[2022-05-07] MEDS: PANTOPRAZOLE 40 MG TABLET PO SCH (08:41)
[2022-05-07] MEDS: ASPIRIN EC 81 MG TABLET PO SCH (08:41)
[2022-05-07] MEDS: DOCUSATE SODIUM 100 MG CAPSULE PO SCH ×2 (08:41→22:47)
[2022-05-07] MEDS: BENZTROPINE 0.5 MG TABLET PO SCH ×3 (08:41→22:46)
[2022-05-07] MEDS: ASCORBIC ACID 500 MG TABLET PO SCH ×2 (08:41→22:47)
[2022-05-07] MEDS: MONTELUKAST 10 MG TABLET PO SCH (08:42)
[2022-05-07] MEDS: FLUTICASONE/SALMETEROL 250-50 DISKUS 14 DOSE INH SCH (08:42)
[2022-05-07] MEDS: ZINC GLUCONATE 50 MG TABLET PO SCH (08:42)
[2022-05-07] MEDS ORDERED: HEPARIN/NACL 0.9% 2 UNITS/ML 2,000 UNIT/1,000 ML BAG IV ONE (11:42)
[2022-05-07] MEDS ORDERED: NITROGLYCERIN DRIP 50 MG/250 ML BOTTLE IV ONE (11:43)
[2022-05-07] MEDS ORDERED: VERAPAMIL 5 MG/2 ML VIAL ONE (11:43)
[2022-05-07] MEDS ORDERED: MIDAZOLAM 2 MG/2 ML VIAL ONE (12:45)
[2022-05-07] MEDS ORDERED: HYDROmorphone 1 MG/1 ML SYRINGE ONE (12:45)
[2022-05-07] MEDS ORDERED: DIAZEPAM 5 MG TABLET PO ONE (13:00)
[2022-05-07] MEDS ORDERED: diphenhydrAMINE CAP 25 MG CAPSULE PO ONE (13:00)
[2022-05-07] MEDS ORDERED: TIROFIBAN 5,000 MCG/100 ML PREMIX IV ONE (13:36)
[2022-05-07] MEDS ORDERED: CLOPIDOGREL 300 MG TABLET ONE (13:48)
[2022-05-07] MEDS ORDERED: SODIUM CHLORIDE 0.9% 1,000 ML IV SCH (14:00)
[2022-05-07] MEDS: DESVENLAFAXINE 50 MG TABLET PO SCH (17:56)
[2022-05-07] MEDS: COENZYME Q10 100 MG CAPSULE PO SCH (22:46)
[2022-05-07] MEDS: ROSUVASTATIN 20 MG TABLET PO SCH (22:47)
[2022-05-07] MEDS: CLOPIDOGREL 75 MG TABLET PO SCH (22:47)
[2022-05-07] MEDS: LINACLOTIDE 145 MCG CAPSULE PO SCH (22:48)
[2022-05-08] MEDS: ALBUTEROL/IPRATROPIUM 3 ML NEB RESP TX SCH ×3 (00:46→12:50)
[2022-05-08 04:29] LABS: Basophils % 0.1 % (0.0-0.8); Hemoglobin 12.2 GM/DL (12.0-16.0); Immature Granulocytes % 0.8 %; Immature Granulocytes Absolute 0.13 #; Lymphocytes # 0.2 10*3/uL (1.4-4.0); Lymphocytes % 1.1 % (21.3-54.2); Mean Corpuscular HGB Conc 30.5 GM/DL (32-36); Mean Corpuscular Volume 87.7 FL (87-102); Mean Platelet Volume 10.8 FL (9.6-12.0); Monocytes # 0.7 10*3/uL (0.11-0.8); Monocytes % 4.5 % (1.7-12.7); Neutrophils % 93.5 % (38.7-73.9); Platelet Count 237 T/CUMM (130-400); Red Blood Count 4.56 MC/CUMM (3.8-5.5); Red Cell Distribution Width 16.1 % (9.3-17.3); White Blood Count 16.6 T/CUMM (4-12)
[2022-05-08 04:48] LABS: Calcium 10.3 MG/DL (8.5-10.1); Osmolality,Calculated 294.5 MOS/KG (273-304); Potassium 4.7 MMOL/L (3.5-5.1)
[2022-05-08 04:50] LABS: Hypochromia Slight; Lymphocytes 1 % (20-55); Microcytosis Slight; Platelet Estimate Adequate; Total Cells Counted 100
[2022-05-08] MEDS ORDERED: methylPREDNISolone SOD SUC 40 MG/1 ML VIAL IV SCH (09:00)
[2022-05-08] MEDS ORDERED: FUROSEMIDE 40 MG TABLET PO SCH (09:00)
[2022-05-08] MEDS: ZINC GLUCONATE 50 MG TABLET PO SCH (09:51)
[2022-05-08] MEDS: METOPROLOL SUCCINATE XL 25 MG TABLET PO SCH (09:51)
[2022-05-08] MEDS: MAGNESIUM CHLORIDE 64 MG TABLET PO SCH ×2 (09:51→10:01)
[2022-05-08] MEDS: THEOPHYLLINE ER (24 HR) 400 MG TABLET PO SCH (09:51)
[2022-05-08] MEDS: ASPIRIN EC 81 MG TABLET PO SCH (09:52)
[2022-05-08] MEDS: BENZTROPINE 0.5 MG TABLET PO SCH (09:52)
[2022-05-08] MEDS: PANTOPRAZOLE 40 MG TABLET PO SCH (09:52)
[2022-05-08] MEDS: MONTELUKAST 10 MG TABLET PO SCH (09:52)
[2022-05-08] MEDS: ASCORBIC ACID 500 MG TABLET PO SCH (09:52)
[2022-05-08] MEDS: DOCUSATE SODIUM 100 MG CAPSULE PO SCH (09:53)
[2022-05-08] MEDS: SPIRONOLACTONE 25 MG TABLET PO SCH (09:53)
[2022-05-08] MEDS: FLUTICASONE/SALMETEROL 250-50 DISKUS 14 DOSE INH SCH (09:56)
[2022-05-08] MEDS: INSULIN REGULAR 100 UNIT/ML SUBCUT SCH ×2 (09:56→14:57)
[2022-05-08] MEDS: ENOXAPARIN 40 MG/0.4 ML SYRINGE SUBCUT SCH (09:57)
[2022-05-08 12:42] VITALS: BP 91/50
== END 2022-05-08 15:10 | disposition home or self-care (01) | DRG 853 ==
LOC: N.ED 18:29 → SUATTDRO 21:09 → N.TELEN 21:09
PROVIDERS: ADMIT Internal Medicine; ATTEND Internal Medicine Geriatric Medicine

== ENCOUNTER 2022-05-27 12:13 | Inpatient (IN) ==
[2022-05-27] MEDS ORDERED: SODIUM CHLORIDE 0.9% 1,000 ML IV STA ×2 (13:24→16:02)
[2022-05-27] MEDS ORDERED: LEVOFLOXACIN INJ 750 MG/150 ML PREMIX IV STA (13:24)
[2022-05-27 13:46] LABS: INR 1.3; PT Patient Result 14.5 SECS (10.1-12.1); Partial Thromboplastin Time 22.4 SECS (23.7-32.9)
[2022-05-27 14:16] LABS: Alanine Aminotransferase 2340 U/L (13-56); Alkaline Phosphatase 343 U/L (45-117); Aspartate Amino Transferase 2957 U/L (0-37); Blood Urea Nitrogen 58 MG/DL (7-18); Calcium 9.1 MG/DL (8.5-10.1); Carbon Dioxide 17 MMOL/L (21-32); Chloride 100 MMOL/L (98-107); Glucose 177 MG/DL (74-106); Osmolality,Calculated 277.9 MOS/KG (273-304); Sodium 129 MMOL/L (136-145)
[2022-05-27 14:45] LABS: Basophils % 0.1 % (0.0-0.8); Hematocrit 38.2 VOL% (35.7-47.0); Hemoglobin 11.5 GM/DL (12.0-16.0); Immature Granulocytes % 0.6 %; Immature Granulocytes Absolute 0.06 #; Lymphocytes # 0.3 10*3/uL (1.4-4.0); Lymphocytes % 3.1 % (21.3-54.2); Mean Corpuscular HGB Conc 30.1 GM/DL (32-36); Mean Corpuscular Volume 83.6 FL (87-102); Mean Platelet Volume 11.9 FL (9.6-12.0); Monocytes % 9.4 % (1.7-12.7); NRBC # 0.16 10*3/uL; Neutrophils % 86.8 % (38.7-73.9); Platelet Count 176 T/CUMM (130-400); Red Blood Count 4.57 MC/CUMM (3.8-5.5); Red Cell Distribution Width 16.4 % (9.3-17.3); White Blood Count 10.3 T/CUMM (4-12)
[2022-05-27 15:42] LABS: Lymphocytes 6 % (20-55); Total Cells Counted 100
[2022-05-27 15:43] LABS: Platelet Estimate Adequate
[2022-05-27 15:44] LABS: Ovalocytes Slight; Polychromasia Slight; Target Cells Few
[2022-05-27] MEDS ORDERED: ONDANSETRON 4 MG/2 ML VIAL ONE (16:03)
[2022-05-27] MEDS: ONDANSETRON 4 MG/2 ML VIAL IV PRN ×2 (16:05→20:43)
[2022-05-27 16:14] LABS: Hepatitis B Core IgM Quant 0.17 Index; Hepatitis B Surface Ag Quant < 0.10 Index; Hepatitis B Surface Ag Result Non-Reactive (NonReactive); Hepatitis C Virus Ab Quant 0.06 Index; Hepatitis C Virus Ab Result Non-Reactive (NonReactive)
[2022-05-27] MEDS ORDERED: ALBUTEROL 2.5 MG/3 ML NEB RESP TX PRN (16:49)
[2022-05-27] MEDS ORDERED: LACTATED RINGERS 1,000 ML IV SCH (17:00)
[2022-05-27] MEDS ORDERED: GLUCAGON 1 MG VIAL IM PRN (17:25)
[2022-05-27] MEDS ORDERED: DEXTROSE 10% 250 ML BAG IV PRN (17:43)
[2022-05-27 17:47] LABS: Bilirubin,Urine Negative (Negative); Blood, Urine Moderate mg/dL (Negative); Glucose,Urine (UA) Negative (Negative); Ketones,Urine Trace mg/dL (Negative); Nitrite,Urine Negative (Negative); Protein,Urine >=300 mg/dL (Negative); Urine Appearance Slightly Cloudy (Clear); Urine Color Dark Yellow (Yellow)
[2022-05-27 17:52] LABS: Bacteria,Urine Occasional /HPF (Few); Hyaline Casts,Urine 5 /LPF (0-3); Mucus,Urine Occasional /LPF (Occasional); RBC,Urine 8 /HPF (0-4); Squamous Epithelial Cell,Urine Few /HPF (0-10)
[2022-05-27] MEDS: SODIUM CHLORIDE 0.9% 1,000 ML IV SCH (19:06)
[2022-05-27] MEDS: FAMOTIDINE 20 MG TABLET PO SCH (20:43)
[2022-05-27] MEDS: ASCORBIC ACID 500 MG TABLET PO SCH (20:44)
[2022-05-27] MEDS: INSULIN LISPRO 100 UNIT/ML SUBCUT SCH (20:44)
[2022-05-27] MEDS ORDERED: ENOXAPARIN 30 MG/0.3 ML SYRINGE SUBCUT SCH (21:00)
[2022-05-28] MEDS: ONDANSETRON 4 MG/2 ML VIAL IV PRN (00:43)
[2022-05-28] MEDS: NOREPINEPHRINE 8 MG in SODIUM CHLORIDE 0.9% 242 ML IV PRN ×2 (01:05→13:41)
[2022-05-28] MEDS: SODIUM CHLORIDE 0.9% 1,000 ML IV SCH (02:26)
[2022-05-28 03:09] LABS: Basophils % 0.1 % (0.0-0.8); Hemoglobin 12.4 GM/DL (12.0-16.0); Immature Granulocytes % 1.2 %; Immature Granulocytes Absolute 0.16 #; Lymphocytes # 0.3 10*3/uL (1.4-4.0); Lymphocytes % 1.9 % (21.3-54.2); Mean Corpuscular HGB Conc 29.7 GM/DL (32-36); Mean Corpuscular Volume 86.9 FL (87-102); Mean Platelet Volume 12.5 FL (9.6-12.0); Monocytes # 1.2 10*3/uL (0.11-0.8); Monocytes % 9.2 % (1.7-12.7); NRBC # 0.43 10*3/uL; Neutrophils % 87.6 % (38.7-73.9); Platelet Count 169 T/CUMM (130-400); Red Blood Count 4.81 MC/CUMM (3.8-5.5); Red Cell Distribution Width 16.5 % (9.3-17.3); White Blood Count 13.5 T/CUMM (4-12)
[2022-05-28 03:10] LABS: Platelet Estimate Adequate
[2022-05-28 03:11] LABS: Hematocrit 41.8 VOL% (35.7-47.0); Polychromasia Few
[2022-05-28 03:24] LABS: Lymphocytes 1 % (20-55); Nucleated Red Blood Cells 4 /100 WBC (0-5); Total Cells Counted 100
[2022-05-28 04:04] LABS: Albumin 2.7 G/DL (3.4-5.0); Bilirubin,Total 1.1 MG/DL (0.20-1.00); Calcium 8.3 MG/DL (8.5-10.1); Osmolality,Calculated 283.2 MOS/KG (273-304); Potassium 5.2 MMOL/L (3.5-5.1); Total Protein 6.4 G/DL (6.4-8.2)
[2022-05-28 05:16] LABS: Arterial Base Excess iSTAT -11 MMOL/L (-2.5-2.5); Arterial Bicarbonate iSTAT 13.3 MMOL/L (20-26); Arterial O2 Saturation iSTAT 93 % (95-100); Arterial PCO2 iSTAT 26 MM HG (35-48); Arterial PO2 iSTAT 70 MM HG (80-95); Arterial Total CO2 iSTAT 14 MMO/L (23-27); Arterial pH iSTAT 7.313 (7.35-7.45)
[2022-05-28 07:00] VITALS: BP 115/80
[2022-05-28] MEDS ORDERED: MORPHINE 2 MG/1 ML SYRINGE ONE (07:24)
[2022-05-28] MEDS ORDERED: MORPHINE 2 MG/1 ML SYRINGE IV ONE ×2 (07:25→10:09)
[2022-05-28] MEDS: INSULIN LISPRO 100 UNIT/ML SUBCUT SCH ×4 (07:30→20:15)
[2022-05-28] MEDS ORDERED: SODIUM BICARBONATE 50 MEQ/50 ML VIAL IV ONE ×4 (08:08→17:40)
[2022-05-28] MEDS ORDERED: methylPREDNISolone SOD SUC 125 MG/2 ML VIAL IV ONE (08:12)
[2022-05-28] MEDS ORDERED: ASCORBIC ACID 500 MG TABLET PO SCH (09:00)
[2022-05-28] MEDS ORDERED: FLUTICASONE/SALMETEROL 250-50 DISKUS 14 DOSE INH SCH (09:00)
[2022-05-28] MEDS ORDERED: LEVOFLOXACIN 750 MG TABLET PO SCH (09:00)
[2022-05-28] MEDS ORDERED: THEOPHYLLINE ER (24 HR) 200 MG CAPSULE PO SCH (09:00)
[2022-05-28 09:45] LABS: ABG Base Excess -6.6 MMOL/L (-2.5-2.5); ABG HCO3 18.9 MMOL/L (20-26); ABG Oxygen Saturation 91.6 % (95-100); ABG PCO2 31.5 MM HG (35-48); ABG PH 7.362 (7.35-7.45); ABG PO2 69.6 MM HG (80-95); ABG TCO2 16.2 MMOL/L (23-27)
[2022-05-28] MEDS: FAMOTIDINE 20 MG TABLET PO SCH ×2 (09:52→20:08)
[2022-05-28] MEDS: ASCORBIC ACID 500 MG TABLET PO SCH ×2 (09:52→20:08)
[2022-05-28] MEDS: CLOPIDOGREL 75 MG TABLET PO SCH (09:53)
[2022-05-28] MEDS: MONTELUKAST 10 MG TABLET PO SCH (09:53)
[2022-05-28] MEDS: ASPIRIN EC 81 MG TABLET PO SCH (09:53)
[2022-05-28] MEDS: SODIUM BICARB INJ 150 MEQ in DEXTROSE 5% 1,000 ML IV SCH ×3 (09:53→20:03)
[2022-05-28 09:58] LABS: Calcium 7.2 MG/DL (8.5-10.1); Osmolality,Calculated 293.5 MOS/KG (273-304); Potassium 5.2 MMOL/L (3.5-5.1)
[2022-05-28] MEDS ORDERED: SODIUM CHLORIDE 0.9% 500 ML IV ONE ×2 (10:00→10:56)
[2022-05-28 10:01] LABS: INR 1.9; PT Patient Result 20.1 SECS (10.1-12.1)
[2022-05-28] MEDS ORDERED: DIAZEPAM 5 MG TABLET PO ONE (11:12)
[2022-05-28] MEDS ORDERED: CALCIUM GLUCONATE RIDER 1,000 MG/50 ML PREMIX IV ONE ×3 (11:18→19:41)
[2022-05-28] MEDS ORDERED: DOBUTamine 500 MG/250 ML PREMIX IV ONE (11:31)
[2022-05-28] MEDS: PHENYLEPHRINE DRIP 40 MG/250 ML PREMIX IV PRN ×2 (11:58→15:10)
[2022-05-28] MEDS ORDERED: ALBUMIN 25% 25 GM/100 ML VIAL IV ONE (12:22)
[2022-05-28] MEDS ORDERED: ROCURONIUM 100 MG/10 ML VIAL IV ONE ×2 (12:34→12:35)
[2022-05-28] MEDS ORDERED: ETOMIDATE 20 MG/10 ML VIAL IV ONE ×2 (12:34→12:35)
[2022-05-28] MEDS: MIDAZOLAM 100 MG in SODIUM CHLORIDE 0.9% 80 ML IV PRN (12:35)
[2022-05-28 12:39] LABS: ABG Base Excess -13.7 MMOL/L (-2.5-2.5); ABG HCO3 13.8 MMOL/L (20-26); ABG Oxygen Saturation 90.1 % (95-100); ABG PCO2 35.2 MM HG (35-48); ABG PO2 78.9 MM HG (80-95); ABG TCO2 12.7 MMOL/L (23-27)
[2022-05-28 12:42] LABS: ABG PH 7.199 (7.35-7.45)
[2022-05-28 13:29] LABS: ABG Base Excess -13.3 MMOL/L (-2.5-2.5); ABG HCO3 14.2 MMOL/L (20-26); ABG Oxygen Saturation 99.4 % (95-100); ABG PCO2 30.6 MM HG (35-48); ABG PH 7.242 (7.35-7.45)
[2022-05-28] MEDS ORDERED: NOREPINEPHRINE 4 MG/4 ML VIAL IV ONE (13:41)
[2022-05-28] MEDS: DOBUTamine 500 MG/250 ML PREMIX IV SCH (14:30)
[2022-05-28] MEDS ORDERED: HYDROCORTISONE 100 MG VIAL IV ONE (15:07)
[2022-05-28] MEDS ORDERED: PHENYLEPHRINE INJ 160 MG in SODIUM CHLORIDE 0.9% 234 ML IV PRN (15:55)
[2022-05-28] MEDS: NOREPINEPHRINE 16 MG in SODIUM CHLORIDE 0.9% 234 ML IV PRN ×2 (15:55→21:39)
[2022-05-28] MEDS: methylPREDNISolone SOD SUC 40 MG/1 ML VIAL IV SCH ×2 (16:11→23:30)
[2022-05-28] MEDS ORDERED: SODIUM BICARBONATE 50 MEQ/50 ML SYRINGE IV ONE (16:24)
[2022-05-28] MEDS ORDERED: DOPamine 800 MG/250 ML PREMIX IV PRN (16:54)
[2022-05-28] MEDS ORDERED: DOPamine 800 MG/250 ML PREMIX IV ONE (16:54)
[2022-05-28] MEDS ORDERED: metroNIDAZOLE INJ 500 MG/100 ML PREMIX IV SCH (17:00)
[2022-05-28 17:05] LABS: ABG Base Excess -8.4 MMOL/L (-2.5-2.5); ABG HCO3 17.6 MMOL/L (20-26); ABG Oxygen Saturation 98.9 % (95-100); ABG PCO2 31.1 MM HG (35-48); ABG PH 7.333 (7.35-7.45); ABG TCO2 15.2 MMOL/L (23-27)
[2022-05-28] MEDS ORDERED: CALCIUM GLUCONATE 1,000 MG/10 ML VIAL IV ONE (17:09)
[2022-05-28] MEDS ORDERED: VASOPRESSIN 100 UNITS in SODIUM CHLORIDE 0.9% 95 ML IV PRN (17:12)
[2022-05-28 17:19] LABS: Calcium 6.9 MG/DL (8.5-10.1); Osmolality,Calculated 304.1 MOS/KG (273-304); Potassium 4.7 MMOL/L (3.5-5.1)
[2022-05-28] MEDS ORDERED: EPINEPHrine 1 MG/10 ML SYRINGE ONE (17:21)
[2022-05-28] MEDS ORDERED: EPINEPHrine 1 MG/ML VIAL ONE ×2 (17:21→17:24)
[2022-05-28] MEDS ORDERED: KETAMINE 500 MG/10 ML VIAL ONE (17:34)
[2022-05-28] MEDS ORDERED: ROCURONIUM 50 MG/5 ML VIAL IV ONE (17:34)
[2022-05-28 18:44] LABS: Basophils % 0.1 % (0.0-0.8); Hematocrit 30.2 VOL% (35.7-47.0); Immature Granulocytes % 1.1 %; Immature Granulocytes Absolute 0.16 #; Mean Corpuscular HGB Conc 29.8 GM/DL (32-36); Mean Corpuscular Volume 87.3 FL (87-102); Mean Platelet Volume 12.1 FL (9.6-12.0); Monocytes # 1.1 10*3/uL (0.11-0.8); Monocytes % 7.6 % (1.7-12.7); NRBC # 0.92 10*3/uL; Neutrophils % 91.2 % (38.7-73.9); Platelet Count 113 T/CUMM (130-400); Red Blood Count 3.46 MC/CUMM (3.8-5.5); Red Cell Distribution Width 16.9 % (9.3-17.3); White Blood Count 14.1 T/CUMM (4-12)
[2022-05-28] MEDS ORDERED: SODIUM CHLORIDE 0.9% 1,000 ML IV ONE (18:45)
[2022-05-28 19:04] LABS: Anisocytosis 1+; Band Neutrophils 5 % (0-10); Lymphocytes 2 % (20-55); Nucleated Red Blood Cells 12 /100 WBC (0-5); Platelet Estimate Decreased; Total Cells Counted 100
[2022-05-28 19:05] LABS: Acanthocytes 1+; Poikilocytosis 1+; Polychromasia 1+
[2022-05-28 19:06] LABS: Burr Cells 1+
[2022-05-28 19:18] LABS: Albumin 2.6 G/DL (3.4-5.0); Bilirubin,Total 1.5 MG/DL (0.20-1.00); Calcium 6.5 MG/DL (8.5-10.1); Osmolality,Calculated 310.8 MOS/KG (273-304); Potassium 4.3 MMOL/L (3.5-5.1); Total Protein 4.9 G/DL (6.4-8.2)
[2022-05-28 19:41] LABS: ABG Base Excess -11.5 MMOL/L (-2.5-2.5); ABG HCO3 15.3 MMOL/L (20-26); ABG Oxygen Saturation 99.1 % (95-100); ABG PH 7.257 (7.35-7.45); ABG TCO2 13.8 MMOL/L (23-27)
[2022-05-28] MEDS: MEROPENEM 500 MG in SODIUM CHLORIDE 0.9% 100 ML IV SCH (20:08)
[2022-05-28] MEDS: OCTREOTIDE 500 MCG in SODIUM CHLORIDE 0.9% 100 ML IV SCH (21:03)
[2022-05-29] MEDS: NOREPINEPHRINE 16 MG in SODIUM CHLORIDE 0.9% 234 ML IV PRN ×5 (02:40→22:51)
[2022-05-29] MEDS: SODIUM BICARB INJ 150 MEQ in DEXTROSE 5% 1,000 ML IV SCH ×3 (02:41→21:24)
[2022-05-29 04:19] LABS: ABG Base Excess -8.3 MMOL/L (-2.5-2.5); ABG HCO3 17.7 MMOL/L (20-26); ABG PCO2 29.3 MM HG (35-48); ABG PH 7.351 (7.35-7.45); ABG TCO2 14.9 MMOL/L (23-27)
[2022-05-29 04:38] LABS: Calcium 6.1 MG/DL (8.5-10.1); Osmolality,Calculated 309.3 MOS/KG (273-304); Potassium 4.6 MMOL/L (3.5-5.1)
[2022-05-29 04:41] LABS: PT Patient Result 30.2 SECS (10.1-12.1)
[2022-05-29 04:55] LABS: Albumin 2.2 G/DL (3.4-5.0); Basophils % 0.1 % (0.0-0.8); Bilirubin,Total 1.6 MG/DL (0.20-1.00); Calcium 5.8 MG/DL (8.5-10.1); Hemoglobin 9.5 GM/DL (12.0-16.0); Immature Granulocytes % 0.8 %; Immature Granulocytes Absolute 0.13 #; Mean Corpuscular HGB Conc 29.7 GM/DL (32-36); Mean Platelet Volume 12.9 FL (9.6-12.0); Monocytes % 6.5 % (1.7-12.7); NRBC # 2.13 10*3/uL; Neutrophils % 92.6 % (38.7-73.9); Osmolality,Calculated 312.1 MOS/KG (273-304); Platelet Count 123 T/CUMM (130-400); Potassium 4.6 MMOL/L (3.5-5.1); Red Blood Count 3.68 MC/CUMM (3.8-5.5); Total Protein 4.6 G/DL (6.4-8.2); White Blood Count 15.6 T/CUMM (4-12)
[2022-05-29 05:05] LABS: Band Neutrophils 2 % (0-10); Nucleated Red Blood Cells 10 /100 WBC (0-5); Platelet Estimate Normal; Total Cells Counted 100
[2022-05-29 05:09] LABS: % Iron Saturation 10.6 % (18-50)
[2022-05-29] MEDS ORDERED: CALCIUM GLUCONATE RIDER 1,000 MG/50 ML PREMIX IV ONE (05:11)
[2022-05-29 05:16] LABS: Folate > 24.00 NG/ML (5.38-24.0); Vitamin B12 > 2000 PG/ML (211-911)
[2022-05-29] MEDS: MEROPENEM 500 MG in SODIUM CHLORIDE 0.9% 100 ML IV SCH ×2 (09:09→21:29)
[2022-05-29] MEDS: methylPREDNISolone SOD SUC 40 MG/1 ML VIAL IV SCH ×2 (09:10→18:16)
[2022-05-29] MEDS: INSULIN LISPRO 100 UNIT/ML SUBCUT SCH ×5 (09:10→23:49)
[2022-05-29] MEDS ORDERED: LEVOFLOXACIN 250 MG TABLET PO SCH (09:30)
[2022-05-29] MEDS ORDERED: SODIUM CHLORIDE 0.9% 1,000 ML IV PRN (09:55)
[2022-05-29] MEDS: ASCORBIC ACID 500 MG TABLET PO SCH ×2 (13:30→21:29)
[2022-05-29] MEDS: MONTELUKAST 10 MG TABLET PO SCH (13:30)
[2022-05-29] MEDS: ASPIRIN EC 81 MG TABLET PO SCH (13:30)
[2022-05-29] MEDS: FAMOTIDINE 20 MG TABLET PO SCH ×2 (13:30→21:29)
[2022-05-29] MEDS: CLOPIDOGREL 75 MG TABLET PO SCH (13:30)
[2022-05-29] MEDS: DOBUTamine 500 MG/250 ML PREMIX IV SCH ×2 (13:50→22:49)
[2022-05-29] MEDS ORDERED: DOBUTamine 500 MG/250 ML PREMIX IV ONE (13:53)
[2022-05-29] MEDS: OCTREOTIDE 500 MCG in SODIUM CHLORIDE 0.9% 100 ML IV SCH (18:16)
[2022-05-29] MEDS: HYDROCORTISONE 100 MG VIAL IV SCH (18:40)
[2022-05-29] MEDS: SODIUM BICARB INJ 150 MEQ in STERILE WATER INJ 1,000 ML IV SCH (20:00)
[2022-05-29] MEDS ORDERED: INSULIN LISPRO 100 UNIT/ML SUBCUT SCH (22:00)
[2022-05-30] MEDS: HYDROCORTISONE 100 MG VIAL IV SCH ×2 (02:29→12:32)
[2022-05-30] MEDS: NOREPINEPHRINE 16 MG in SODIUM CHLORIDE 0.9% 234 ML IV PRN ×2 (03:16→07:31)
[2022-05-30 03:44] LABS: ABG Base Excess 2.2 MMOL/L (-2.5-2.5); ABG HCO3 26.4 MMOL/L (20-26); ABG Oxygen Saturation 99.2 % (95-100); ABG PH 7.544 (7.35-7.45); ABG TCO2 22.1 MMOL/L (23-27)
[2022-05-30 03:48] LABS: Basophils % 0.1 % (0.0-0.8); Hematocrit 28.7 VOL% (35.7-47.0); Hemoglobin 9.1 GM/DL (12.0-16.0); Immature Granulocytes % 2.7 %; Immature Granulocytes Absolute 0.39 #; Lymphocytes # 0.2 10*3/uL (1.4-4.0); Lymphocytes % 1.5 % (21.3-54.2); Mean Corpuscular HGB Conc 31.7 GM/DL (32-36); Mean Platelet Volume 12.9 FL (9.6-12.0); Monocytes # 0.7 10*3/uL (0.11-0.8); Monocytes % 4.6 % (1.7-12.7); NRBC # 2.51 10*3/uL; Neutrophils % 91.1 % (38.7-73.9); Platelet Count 112 T/CUMM (130-400); Red Cell Distribution Width 16.6 % (9.3-17.3); White Blood Count 14.6 T/CUMM (4-12)
[2022-05-30 04:03] LABS: INR 3.4; PT Patient Result 34.5 SECS (10.1-12.1)
[2022-05-30 04:06] LABS: Lymphocytes 3 % (20-55); Nucleated Red Blood Cells 29 /100 WBC (0-5); Total Cells Counted 100
[2022-05-30 04:07] LABS: Hypochromia Slight; Microcytosis Slight
[2022-05-30 04:10] LABS: Osmolality,Calculated 302.5 MOS/KG (273-304); Potassium 4.8 MMOL/L (3.5-5.1)
[2022-05-30 04:11] LABS: Calcium 5.1 MG/DL (8.5-10.1)
[2022-05-30] MEDS ORDERED: CALCIUM CHLORIDE 1,000 MG/10 ML SYRINGE IV ONE (04:24)
[2022-05-30] MEDS ORDERED: CALCIUM GLUCONATE 1,000 MG/10 ML VIAL IV ONE (04:26)
[2022-05-30 04:34] LABS: Albumin 1.8 G/DL (3.4-5.0); Bilirubin,Total 1.7 MG/DL (0.20-1.00); Osmolality,Calculated 306.3 MOS/KG (273-304); Potassium 4.9 MMOL/L (3.5-5.1); Total Protein 4.1 G/DL (6.4-8.2)
[2022-05-30 04:35] LABS: Calcium 5.1 MG/DL (8.5-10.1)
[2022-05-30] MEDS: INSULIN LISPRO 100 UNIT/ML SUBCUT SCH ×3 (05:00→12:32)
[2022-05-30] MEDS ORDERED: CALCIUM GLUCONATE RIDER 1,000 MG/50 ML PREMIX IV ONE (05:00)
[2022-05-30] MEDS: DOBUTamine 500 MG/250 ML PREMIX IV SCH ×2 (05:12→12:27)
[2022-05-30] MEDS: MIDAZOLAM 100 MG in SODIUM CHLORIDE 0.9% 80 ML IV PRN (05:52)
[2022-05-30] MEDS: SODIUM BICARB INJ 150 MEQ in STERILE WATER INJ 1,000 ML IV SCH (07:30)
[2022-05-30] MEDS ORDERED: MORPHINE 2 MG/1 ML SYRINGE IV ONE (08:00)
[2022-05-30] MEDS ORDERED: MORPHINE 2 MG/1 ML SYRINGE ONE (08:00)
[2022-05-30] MEDS ORDERED: fentaNYL 100 MCG/2 ML VIAL IV ONE (08:25)
[2022-05-30] MEDS: ASPIRIN EC 81 MG TABLET PO SCH (08:49)
[2022-05-30] MEDS: MEROPENEM 500 MG in SODIUM CHLORIDE 0.9% 100 ML IV SCH (08:49)
[2022-05-30] MEDS: FAMOTIDINE 20 MG TABLET PO SCH (08:50)
[2022-05-30] MEDS: CLOPIDOGREL 75 MG TABLET PO SCH (08:50)
[2022-05-30] MEDS: ASCORBIC ACID 500 MG TABLET PO SCH (08:50)
[2022-05-30] MEDS: MONTELUKAST 10 MG TABLET PO SCH (08:50)
== END 2022-05-30 11:05 | disposition expired | DRG 853 ==
LOC: N.ED 12:13 → N.EDINP 16:49 → N.ICU 17:15
PROVIDERS: ADMIT Family Medicine; ATTEND Family Medicine